=== PATIENT | male | born 1945 | race Caucasian/White ===

== ENCOUNTER 2024-07-10 05:44 | Inpatient (IN) ==
[2024-07-10 06:36] LABS: Basophils # (auto) 0.04 K/uL (0.00-0.20); Basophils % (auto) 0.8 %; Eosinophils # (auto) 0.15 K/uL (0.00-0.50); Eosinophils % (auto) 2.9 %; Hematocrit (blood only) 47.3 % (42.0-52.0); Hemoglobin 16.8 g/dl (14.0-18.0); Immature Granulocytes # (auto) 0.01 K/uL (0.01-0.20); Immature Granulocytes % (auto) 0.2 %; Lymphocytes # (auto) 0.52 K/uL (1.20-3.40); Mean Corpuscular Hemoglobin 30.4 pg (25.0-34.0); Mean Corpuscular Hgb Conc 35.5 g/dL (32.0-36.0); Mean Corpuscular Volume 85.5 fL (80.0-100.0); Mean Platelet Volume 8.5 fL (9.4-12.4); Monocytes # (auto) 0.45 K/uL (0.11-0.59); Monocytes % (auto) 8.6 %; Neutrophils # (auto) 4.05 K/uL (1.40-6.50); Neutrophils % (auto) 77.5 %; Platelet Count 196 K/uL (130-400); RDW Coefficient of Variation 12.8 % (11.5-14.5); RDW Standard Deviation 39.3 fL (36.4-46.3); Red Blood Count 5.53 M/uL (4.70-6.10); White Blood Count 5.22 K/ul (4.8-10.8)
--- NOTE | 2024-07-10 07:08 | Emergency Department Note ---
History of Present Illness General Chief Complaint: Chest Pain Stated Complaint: CHEST PAIN Time Seen by Provider: 07/10/24 06:34 History of Present Illness Provider Complaint: chest pain Time: 02:00 Duration: intermittent Onset: during rest Pain Location: left chest Pain Radiation: LUE Severity: mild Current Pain Intensity: 0 Quality: + aching and + dull Relieved By: + nothing Exacerbated By: + nothing Context: no recent illness, no recent surgery, no recent immobilization, no recent travel, no trauma/injury or no new medications Associated symptoms: no nausea, no vomiting, no dyspnea, no syncope, no palpitations, no fever, no cough or no leg swelling Home Medications Medication Instructions Recorded Confirmed Type albuterol sulfate 90 mcg/actuation 2 puff inhalation QID PRN 10/15/22 07/10/24 History aerosol inhaler Shortness Of Breath fluticasone propionate 50 2 spray intranasal QAM 10/15/22 07/10/24 History mcg/actuation nasal spray,suspension lorazepam 1 mg tablet 1 mg PO BID 10/15/22 07/10/24 History mirtazapine 15 mg tablet 30 mg PO HS 10/15/22 07/10/24 History dicyclomine 10 mg capsule 10 mg PO TID PRN abdominal pain 06/30/24 07/10/24 Rx #20 caps famotidine 20 mg tablet 20 mg PO DAILY 06/30/24 07/10/24 History metoclopramide HCl 5 mg tablet 5 mg PO Q8H PRN nausea and 06/30/24 07/10/24 Rx vomiting #14 tabs azelastine 137 mcg (0.1 %) nasal 1 spray intranasal DAILY 07/09/24 07/10/24 History spray buspirone 5 mg tablet 5 mg PO BID 07/09/24 07/10/24 History prochlorperazine maleate 5 mg 5 mg PO DIRECTED PRN n/v 07/09/24 07/10/24 History tablet sennosides 8.6 mg tablet (senna) 8.6 mg PO DAILY 07/09/24 07/10/24 History tamsulosin 0.4 mg capsule 0.4 mg PO DAILY 07/09/24 07/10/24 History Allergies Allergy/AdvReac Type Severity Reaction Status Date / Time bee venom protein (honey bee) Allergy Severe SWELLING Verified 06/30/24 18:19 Penicillins Allergy Intermediate RASH Verified 06/30/24 18:19 hydromorphone AdvReac Mild VOMITING Verified 06/30/24 18:19 Past Med/Surg History Problem List (Updated 07/10/24 @ 09:26 by Lorenzo Juárez MD) Chest pain (Acute) Acute hyponatremia (Acute) Dry mouth (Acute) Nausea (Acute) Abdominal pain (Acute) Encounter for pre-operative examination Medical History Esophageal cancer S/P radiation therapy Acute hyponatremia Diverticulitis Lung nodules monitoring-once every 6 months-1 year Chronic obstructive pulmonary disease inh prn History of COVID-19 10/2020, test in [place], not hosp; fatigue, body aches>resolved in 1 week Anxiety Surgical History History of right cataract surgery Hx laparoscopic cholecystectomy Hx of colonoscopy Hx of sinus surgery Hx of tonsillectomy Social History Smoking Status: Former smoker Second Hand Exposure: No; Do You Dip or Chew Tobacco: No; Hx Alcohol Use: Yes Hx Substance Use: No Preferred Language: Uzbek Communication Ability: Effective Correctional Casework Specialist Required: No Beliefs That Will Affect Care: None Current Living Situation: Spouse and Family Feels Safe at Home: Yes Assistive Devices: Denture - Upper and Glasses Physical Exam Vital Signs Vital Signs - 24 hr 07/10/24 05:45 07/10/24 05:53 07/10/24 05:55 Temperature 36.4 C L Temperature Source Temporal Artery Scan Pulse Rate 85 78 Pulse Rate [Apical] Pulse Rhythm [Apical] Pulse Strength [Apical] Respiratory Rate 18 Respiratory Effort / Characteristics Respiratory Depth Respiratory Pattern Blood Pressure [Right Arm] Blood Pressure Mean [Right Arm] Blood Pressure Position Sitting Blood Pressure Position [Right Arm] Pulse Oximetry 94 97 Oxygen Delivery Method Room Air Room Air Sepsis Recent Fever Within 48 Hours No Sepsis New/Unexplained Change in Mental Status No Sepsis Action Taken by Nursing No Action Required 07/10/24 05:55 07/10/24 05:55 07/10/24 07:34 Temperature Temperature Source Pulse Rate Pulse Rate [Apical] 74 61 Pulse Rhythm [Apical] Regular Pulse Strength [Apical] Normal Respiratory Rate 18 20 Respiratory Effort / Characteristics Non-Labored Spontaneous Non-Labored Spontaneous Respiratory Depth Normal Normal Respiratory Pattern Regular Regular Blood Pressure [Right Arm] 163/97 H 126/92 Blood Pressure Mean [Right Arm] 119 103 Blood Pressure Position Blood Pressure Position [Right Arm] Sitting Pulse Oximetry 97 97 98 Oxygen Delivery Method Room Air Room Air Room Air Sepsis Recent Fever Within 48 Hours Sepsis New/Unexplained Change in Mental Status Sepsis Action Taken by Nursing Physical Exam GENERAL: oriented to person, place, and time. appears well-developed and well- nourished. HENT: Exam performed. - Head: Normocephalic and atraumatic. EYES: Conjunctivae and EOM are normal. Right eye exhibits no discharge. Left eye exhibits no discharge. No scleral icterus. NECK: Normal range of motion. Neck supple. No JVD present. CV: Normal rate, regular rhythm, normal heart sounds and intact distal pulses. There is no peripheral edema. Palpable radial pulses bue. PULM/CHEST: Effort normal and breath sounds normal. No respiratory distress. No stridor. no wheezes. no rales. ABD: The abdomen is soft. There is no tenderness. NEURO: Motor and sensation grossly intact. SKIN: Skin is warm and dry. He is not diaphoretic. PSYCH: normal mood and affect. Behavior is normal. Judgment and thought content normal. Course Course 0634: The patient was evaluated in room A2. A complete history and physical exam was performed Cardiac monitoring: An order was placed for continuous cardiac monitoring. The monitor shows a rate of 80 with sinus rhythm interpreted by me 0910: Vital signs stable. Labs and imaging within normal limits. Patient will be admitted for his recurrent chest pains. [facility] hospitalist team will be contacted. Administered Medications Discontinued Medications Ioversol (Optiray 320 125ml) 112 ml IV ONCE ONE Stop: 07/10/24 07:36 Last Admin: 07/10/24 07:35 Dose: 112 ml Documented By: JAIDEN Medical Decision Making Laboratory Data Attestation: I reviewed the patient's lab results. 07/10/24 05:50 07/10/24 05:50 Labs: Lab Results 07/10/24 Range/Units 05:50 WBC 5.22 (4.8-10.8) K/ul RBC 5.53 (4.70-6.10) M/uL Hgb 16.8 (14.0-18.0) g/dl Hct 47.3 (42.0-52.0) % MCV 85.5 (80.0-100.0) fL MCH 30.4 (25.0-34.0) pg MCHC 35.5 (32.0-36.0) g/dL RDW Std Deviation 39.3 (36.4-46.3) fL RDW Coeff of Zohra 12.8 (11.5-14.5) % Plt Count 196 (130-400) K/uL MPV 8.5 L (9.4-12.4) fL Immature Gran % (Auto) 0.2 % Neut % (Auto) 77.5 % Lymph % (Auto) 10.0 % [place] % (Auto) 8.6 % Eos % (Auto) 2.9 % Baso % (Auto) 0.8 % Neut # (Auto) 4.05 (1.40-6.50) K/uL Lymph # (Auto) 0.52 L (1.20-3.40) K/uL [place] # (Auto) 0.45 (0.11-0.59) K/uL Eos # (Auto) 0.15 (0.00-0.50) K/uL Baso # (Auto) 0.04 (0.00-0.20) K/uL Immature Gran # (Auto) 0.01 (0.01-0.20) K/uL Sodium 133 L (136-145) mmol/L Potassium 4.1 (3.5-5.1) mmol/L Chloride 96 L (98-107) mmol/L Carbon Dioxide 29 (21-32) mmol/L Anion Gap 8 (3-11) BUN 7 (6-23) mg/dl Creatinine 1.01 (0.6-1.4) mg/dl Est Cr Clr Drug Dosing 56.4 ml/min eGFR 76.12 BUN/Creatinine Ratio 6.9 L (10-20) Glucose 99 (70-99(Fasting)) mg/dl Calcium 10.7 H (8.6-10.3) mg/dl Total Bilirubin 1.0 (0.2-1.0) mg/dl AST 18 (13-39) U/L ALT 19 (7-52) U/L Alkaline Phosphatase 71 (34-104) U/L Troponin I High Sens 5.1 (0-20) pg/ml Total Protein 8.2 D (6.0-8.3) gm/dl Albumin 4.9 (3.4-5.0) gm/dl Globulin 3.3 (2.5-4.0) gm/dl Albumin/Globulin Ratio 1.5 (0.9-2) Lipase 27 (11-82) U/L Imaging Data Chest x-ray: Attestation: I personally reviewed and interpreted this imaging study as follows: My impression: Chest x-ray: No significant change from the chest x-ray yesterday. CT scan - chest: Radiologist's impression: CT ANGIOGRAM OF THE CHEST CLINICAL HISTORY: Atypical/left-sided chest pain. Nausea. COMPARISON STUDY: Chest x-ray dated 07/10/2024. Chest CT dated 01/31/2024. TECHNIQUE: Following the IV administration of 112 cc of Optiray 320, CT angiogram of the chest was performed from the upper abdomen to the thoracic inlet utilizing the pulmonary embolus protocol. Images are reviewed in the axial, sagittal, and coronal planes. 3-D MIPS images are created and assessed. IV contrast was administered without complication. A dose lowering technique was utilized adhering to the principles of ALARA. CT DOSE: 624.79 mGy.cm FINDINGS: Thyroid: Imaged portions of the thyroid gland are normal in size and attenuation. Thoracic aorta: There is atherosclerotic calcification of the thoracic aorta, which is normal in caliber and demonstrates standard 3-vessel arch anatomy. No dissection is seen. Pulmonary vasculature: The pulmonary trunk is normal in caliber. There are no filling defects identified in main, lobar, or segmental pulmonary branches to suggest pulmonary embolus. Heart: The heart is top normal in size and without pericardial effusion. There is coronary artery atherosclerosis. Lungs and pleural spaces: Evaluation of the lung parenchyma is degraded by motion artifact. There is moderate emphysematous change. No airspace consolidation or pleural effusion is identified. The trachea and central airways are clear. There are scattered foci of parenchymal scarring. A 3 mm right upper lobe nodule on image #140 is unchanged, as are 3 mm right middle lobe nodules seen on images #111 and #118. Mediastinum: There is no mediastinal lymphadenopathy. Betsey: Clear. Axillae: There is no axillary lymphadenopathy. Upper abdomen: Cholecystectomy clips are noted. Bilateral upper pole renal cysts are partially visualized and measure up to 6 cm. There is a small hiatal hernia. Skeletal structures: The skeletal structures are osteopenic. Mild degenerative change is noted in the shoulders and spine. No lytic or blastic bony lesions are seen. IMPRESSION: 1. There is no evidence of pulmonary embolus in the main, lobar, or segmental pulmonary arteries. 2. Emphysema. 3. There is no airspace consolidation or pleural effusion. 4. Additional findings as above. ACT 112: Negative or not required by law. Electronically signed by: Luis Christianson M.D. 07/10/2024 8:29 AM Dictated: 07/10/24802 Transcribed: 07/10/24808 ECG Data Attestation: I personally reviewed and interpreted this ECG as follows: Rate (beats per minute): 77 Rhythm: normal sinus Findings: no ST depression, no ST elevation or no prolonged QT MDM Narrative 0634: The patient was evaluated in room A2. A complete history and physical exam was performed Cardiac monitoring: An order was placed for continuous cardiac monitoring. The monitor shows a rate of 80 with sinus rhythm interpreted by me 0910: Vital signs stable. Labs and imaging within normal limits. Patient will be admitted for his recurrent chest pains. [facility] hospitalist team will be contacted. Impression & Plan Chest pain Discharge Plan Visit Data Chief Complaint: Chest Pain Stated Complaint: CHEST PAIN ED Provider: Lorenzo Juárez Discharge Problem: Chest pain Patient Disposition: Being Evaluated by Hospitalist Forms Stand Alone Forms: My [facility] Prescriptions Prescriptions: No Action mirtazapine 15 mg Tablet 30 mg PO HS lorazepam 1 mg Tablet 1 mg PO BID fluticasone propionate 50 mcg/actuation [place],Suspension 2 spray INTRANASAL QAM Rx Instructions: administer into each nostril albuterol sulfate 90 mcg/actuation Hfa Aerosol Inhaler 2 puff INHALATION QID PRN (Reason: Shortness Of Breath) famotidine 20 mg tablet 20 mg PO DAILY dicyclomine 10 mg capsule 10 mg PO TID PRN (Reason: abdominal pain) Qty: 20 0RF metoclopramide HCl 5 mg tablet 5 mg PO Q8H PRN (Reason: nausea and vomiting) Qty: 14 0RF buspirone 5 mg tablet 5 mg PO BID sennosides [senna] 8.6 mg tablet 8.6 mg PO DAILY prochlorperazine maleate 5 mg tablet 5 mg PO DIRECTED PRN (Reason: n/v) tamsulosin 0.4 mg capsule 0.4 mg PO DAILY azelastine 137 mcg (0.1 %) spray,non-aerosol 1 spray INTRANASAL DAILY Referrals Referrals: David Enriquez MD [Primary Care Provider] - Discharge Problem: Chest pain Qualifiers: Chest pain type: unspecified Qualified Code(s): R07.9 - Chest pain, unspecified
[2024-07-10 07:19] LABS: Albumin Globulin Ratio 1.5 (0.9-2); Albumin Level 4.9 gm/dl (3.4-5.0); BUN Creatinine Ratio 6.9 (10-20); Calcium 10.7 mg/dl (8.6-10.3); Creatinine Clr Calc Pharmacy 56.4 ml/min; Globulin 3.3 gm/dl (2.5-4.0); Potassium 4.1 mmol/L (3.5-5.1); Total Protein 8.2 gm/dl (6.0-8.3); Troponin I High Sensitivity 5.1 pg/ml (0-20)
[2024-07-10] MEDS: OPTIRAY 320 125ml IV ONE (07:35)
--- NOTE | 2024-07-10 07:37 | Electrocardiogram Report ---
Test Reason : Blood Pressure : */* mmHG Vent. Rate : 77 BPM Atrial Rate : 77 BPM P-R Int : 160 ms QRS Dur : 90 ms QT Int : 390 ms P-R-T Axes : 82 84 77 degrees QTcB Int : 441 ms Normal sinus rhythm Normal ECG When compared with ECG of 09-Jul-2024 10:36, (unconfirmed) No significant change was found Confirmed by Gautam Liang ([id number]) on 07/10/2024 7:37:12 AM Referred By: Confirmed By: Gautam Liang
--- NOTE | 2024-07-10 08:01 | XRay Report ---
SINGLE VIEW CHEST CLINICAL HISTORY: Atypical/left-sided chest pain. FINDINGS: An AP, portable, upright chest radiograph is compared to study dated 06/06/2011 and correlat ed with chest CT dated 01/31/2024. The examination is degraded by portable technique, apical lordotic positioning, and patient rotation. The cardiomediastinal silhouette is unremarkable noting atheroscle rotic calcification of the thoracic aorta. Emphysema and chronic interstitial thickening is similar t o previous. There is mild chronic elevation of right hemidiaphragm. The lungs and pleural spaces are clear. No pneumothorax is seen. The skeletal structures are osteopenic. The bony thorax is grossly in tact. IMPRESSION: Emphysematous change with no active disease in the chest. ACT 112: Negative or not required by law. Electronically signed by: Luis Christianson M.D. 07/10/2024 8:00 AM
--- NOTE | 2024-07-10 08:31 | CT Scan Report ---
CT ANGIOGRAM OF THE CHEST CLINICAL HISTORY: Atypical/left-sided chest pain. Nausea. COMPARISON STUDY: Chest x-ray dated 07/10/2024. Chest CT dated 01/31/2024. TECHNIQUE: Following the IV administration of 112 cc of Optiray 320, CT angiogram of the chest was pe rformed from the upper abdomen to the thoracic inlet utilizing the pulmonary embolus protocol. Images are reviewed in the axial, sagittal, and coronal planes. 3-D MIPS images are created and assessed. I V contrast was administered without complication. A dose lowering technique was utilized adhering to the principles of ALARA. CT DOSE: 624.79 mGy.cm FINDINGS: Thyroid: Imaged portions of the thyroid gland are normal in size and attenuation. Thoracic aorta: There is atherosclerotic calcification of the thoracic aorta, which is normal in [place] titi and demonstrates standard 3-vessel arch anatomy. No dissection is seen. Pulmonary vasculature: The pulmonary trunk is normal in caliber. There are no filling defects identif ied in main, lobar, or segmental pulmonary branches to suggest pulmonary embolus. Heart: The heart is top normal in size and without pericardial effusion. There is coronary artery ath erosclerosis. Lungs and pleural spaces: Evaluation of the lung parenchyma is degraded by motion artifact. There is moderate emphysematous change. No airspace consolidation or pleural effusion is identified. The trach ea and central airways are clear. There are scattered foci of parenchymal scarring. A 3 mm right uppe r lobe nodule on image #140 is unchanged, as are 3 mm right middle lobe nodules seen on images #111 a nd #118. Mediastinum: There is no mediastinal lymphadenopathy. Betsey: Clear. Axillae: There is no axillary lymphadenopathy. Upper abdomen: Cholecystectomy clips are noted. Bilateral upper pole renal cysts are partially visual ized and measure up to 6 cm. There is a small hiatal hernia. Skeletal structures: The skeletal structures are osteopenic. Mild degenerative change is noted in the shoulders and spine. No lytic or blastic bony lesions are seen. IMPRESSION: 1. There is no evidence of pulmonary embolus in the main, lobar, or segmental pulmonary arteries. 2. Emphysema. 3. There is no airspace consolidation or pleural effusion. 4. Additional findings as above. ACT 112: Negative or not required by law. Electronically signed by: Luis Christianson M.D. 07/10/2024 8:29 AM
--- NOTE | 2024-07-10 10:11 | History & Physical Report ---
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 Finish the course of 35 radiation treatment last week or so He sees oncologist at [place] and saw him about 3 to 4 weeks ago (3) Abdominal bloating: Plan: He has been complaining of abdominal bloating with nausea and vomiting and abdominal pain for a Recently he was seen by his primary care physician and underwent CT of the abdomen pelvis without IV and oral contrast The CT of the abdomen pelvis without IV and oral contrast was negative as of 06/16/2024 He has been on oral famotidine and Protonix and will try Maalox as needed for dyspepsia Plan to get a CT scan of the abdomen pelvis with IV and oral contrast to rule out any possibility of metastatic disease (4) Chronic obstructive pulmonary disease: Plan: History of smoking in the past and takes occasional bronchodilator inhaler for COPD No evidence of exacerbation (5) Anxiety: Plan: History of generalized anxiety disorder and also recurrent major depressive disorder Will continue current medications including lorazepam 1 mg twice daily DVT prophylaxis Lovenox subcu CODE STATUS Full History of Present Illness Chief Complaint: Left-sided chest pain since 2 AM, abdominal discomfort, bloating and nausea with vomiting Primary Care Provider: David Enriquez MD He is a 78-year-old male with significant past medical history of squamous cell carcinoma of glottis/larynx finished radiation treatment last week or so, COPD, recurrent major depressive disorder, JOSE, hyperlipidemia and ongoing dyspepsia apparently woke up at 2 AM with left-sided chest pain with radiation to the left upper extremity. The pain lasted for a while but did not have any other associated symptoms of dizziness, sweating, shortness of breath, palpitation but he did have abdominal bloating with nausea and vomiting. He did not have this kind of pain in the chest before. When asking questions he mentioned to have more problem with abdominal bloating which has been ongoing associated with nausea and occasional vomiting. His initial EKG and troponins were unremarkable. He was admitted to medical telemetry unit for continuation of care. Allergies Allergy/AdvReac Type Severity Reaction Status Date / Time bee venom protein (honey bee) Allergy Severe SWELLING Verified 06/30/24 18:19 Penicillins Allergy Intermediate RASH Verified 06/30/24 18:19 hydromorphone AdvReac Mild VOMITING Verified 06/30/24 18:19 Home Medications Medication Instructions Recorded Confirmed Type albuterol sulfate 90 mcg/actuation 2 puff inhalation QID PRN 10/15/22 07/10/24 History aerosol inhaler Shortness Of Breath fluticasone propionate 50 2 spray intranasal QAM 10/15/22 07/10/24 History mcg/actuation nasal spray,suspension lorazepam 1 mg tablet 1 mg PO BID 10/15/22 07/10/24 History mirtazapine 15 mg tablet 30 mg PO HS 10/15/22 07/10/24 History dicyclomine 10 mg capsule 10 mg PO TID PRN abdominal pain 06/30/24 07/10/24 Rx #20 caps famotidine 20 mg tablet 20 mg PO DAILY 06/30/24 07/10/24 History metoclopramide HCl 5 mg tablet 5 mg PO Q8H PRN nausea and 06/30/24 07/10/24 Rx vomiting #14 tabs azelastine 137 mcg (0.1 %) nasal 1 spray intranasal DAILY 07/09/24 07/10/24 History spray buspirone 5 mg tablet 5 mg PO BID 07/09/24 07/10/24 History prochlorperazine maleate 5 mg 5 mg PO DIRECTED PRN n/v 07/09/24 07/10/24 History tablet sennosides 8.6 mg tablet (senna) 8.6 mg PO DAILY 07/09/24 07/10/24 History tamsulosin 0.4 mg capsule 0.4 mg PO DAILY 07/09/24 07/10/24 History Past Med/Surg History Problem List (Updated 07/10/24 @ 10:22 by Karolina Olmos MD) Abdominal bloating Squamous cell carcinoma of glottis Chest pain (Acute) Acute hyponatremia (Acute) Dry mouth (Acute) Nausea (Acute) Abdominal pain (Acute) Encounter for pre-operative examination Medical History Esophageal cancer S/P radiation therapy Acute hyponatremia Diverticulitis Lung nodules monitoring-once every 6 months-1 year Chronic obstructive pulmonary disease inh prn History of COVID-19 10/2020, test in [place], not hosp; fatigue, body aches>resolved in 1 week Anxiety Surgical History History of right cataract surgery Hx laparoscopic cholecystectomy Hx of colonoscopy Hx of sinus surgery Hx of tonsillectomy Social History Smoking Status: Former smoker Second Hand Exposure: No; Do You Dip or Chew Tobacco: No; Hx Alcohol Use: Yes Hx Substance Use: No Preferred Language: Surinamese Communication Ability: Effective Plastic Surgery Assistant Required: No Beliefs That Will Affect Care: None Current Living Situation: Spouse and Family Feels Safe at Home: Yes Assistive Devices: Denture - Upper and Glasses Review of Systems Review of Systems: All systems reviewed and are unremarkable except as noted below Physical Exam Physical Exam: Sitting at the edge of the bed with some discomfort due to abdominal bloating mainly no more chest pain Constitutional: + ill appearing and average body habitus Eyes: PERRL, conjunctivae normal, anicteric sclerae ENMT: external ear and nose normal, oropharynx normal Neck: trachea midline, no thyromegaly Respiratory: no respiratory distress Auscultation: lungs clear to auscultation bilaterally Cardiovascular: Rate/Rhythm: regular rate and regular rhythm; not tachycardic Heart Sounds: normal S1 and normal S2; no murmur Extremities: no edema Gastrointestinal (Abdomen): Inspection/Auscultation: + abdomen distended and normal bowel sounds Percussion/Palpation: abdomen soft; abdomen nontender Musculoskeletal: No acute arthritis involving any of the joints Neurologic: normal touch/pain/proprioception and moves all extremities; no focal motor deficits Psychiatric: A+Ox3, euthymic affect Lymphatic: no cervical or axillary lymphadenopathy Results & Data Results & Data Vital Signs (Past 12 Hours) Vital Signs Temp Pulse Pulse Resp BP BP Pulse Ox 07/10/24 09:06 70 19 159/85 H 96 07/10/24 07:34 61 20 126/92 98 07/10/24 05:55 97 07/10/24 05:55 74 18 163/97 H 97 10/27/24 05:55 97 07/10/24 05:53 78 07/10/24 05:45 36.4 C L 85 18 94 O2 Del Method 07/10/24 09:06 07/10/24 07:34 Room Air 07/10/24 05:55 Room Air 07/10/24 05:55 Room Air 07/10/24 05:55 Room Air 07/10/24 05:53 07/10/24 05:45 Room Air Laboratory Results Short CBC 07/10/24 Range/Units 05:50 WBC 5.22 (4.8-10.8) K/ul Hgb 16.8 (14.0-18.0) g/dl Hct 47.3 (42.0-52.0) % Plt Count 196 (130-400) K/uL BMP 07/10/24 05:50 Sodium 133 L Potassium 4.1 Chloride 96 L Carbon Dioxide 29 BUN 7 Creatinine 1.01 Glucose 99 Calcium 10.7 H Liver Function 07/10/24 Range/Units 05:50 Total Bilirubin 1.0 (0.2-1.0) mg/dl AST 18 (13-39) U/L ALT 19 (7-52) U/L Alkaline Phosphatase 71 (34-104) U/L Albumin 4.9 (3.4-5.0) gm/dl Medications Administered Current Inpatient Medications Al Hydrox/Mg Hydrox/Simethicone (Aluminum/Magnesium Susp 30 Ml Udc) 30 ml PO Q6H PRN PRN Reason: Dyspepsia Stop: 08/09/24 10:01 Enoxaparin Sodium (Enoxaparin Inj 40 Mg/0.4 Ml Syr) 40 mg SQ QAM [facility] Stop: 08/09/24 10:14 Code Status & VTE Plan VTE Prophylaxis Plan VTE Prophylaxis will be ordered: Yes (1) Chest pain Chest pain type: unspecified Qualified Code(s): R07.9 - Chest pain, unspecified
[2024-07-10] MEDS: ALUMINUM/MAGNESIUM SUSP 30 ML UDC PO PRN (10:21)
[2024-07-10] MEDS: ENOXAPARIN INJ 40 MG/0.4 ML SYR SQ SCH (11:20)
[2024-07-10] MEDS ORDERED: ALBUTEROL HFA 8 GM INHALER INH PRN (12:52)
[2024-07-10] MEDS ORDERED: HYDROmorphone INJ 0.5 MG/0.5 ML SYR IV PRN (14:35)
[2024-07-10] MEDS: LACTATED RINGER'S 1,000 ML IV SCH (14:55)
[2024-07-10] MEDS: DICYCLOMINE HCL 10 MG CAP PO PRN (15:00)
[2024-07-10] MEDS ORDERED: KETOROLAC TROMETHAMINE 15 MG/ML VIAL IV PRN (15:06)
[2024-07-10] MEDS: LORazepam 1 MG TAB PO STA (16:09)
[2024-07-10] MEDS: MIRTAZAPINE TAB 15 MG TAB PO SCH (21:26)
[2024-07-10] MEDS: busPIRone 5 MG TAB PO SCH (21:26)
[2024-07-10] MEDS: LORazepam 1 MG TAB PO SCH (21:32)
[2024-07-10] MEDS: HYDROCODONE/ACETAMOPHEN 5/325MG TAB PO PRN (21:32)
[2024-07-10] MEDS: ACETAMINOPHEN 325 MG TAB PO PRN (22:53)
[2024-07-11] MEDS: ONDANSETRON INJ 2 MG/ML 2 ML VIAL IV PRN (06:05)
[2024-07-11 06:08] LABS: BUN Creatinine Ratio 6.5 (10-20); Calcium 9.7 mg/dl (8.6-10.3); Creatinine Clr Calc Pharmacy 61.2 ml/min; Magnesium 1.7 mg/dl (1.7-2.4); Potassium 3.8 mmol/L (3.5-5.1)
[2024-07-11 06:42] LABS: Basophils # (auto) 0.05 K/uL (0.00-0.20); Eosinophils # (auto) 0.17 K/uL (0.00-0.50); Eosinophils % (auto) 3.5 %; Hematocrit (blood only) 36.5 % (42.0-52.0); Hemoglobin 13.1 g/dl (14.0-18.0); Immature Granulocytes # (auto) 0.01 K/uL (0.01-0.20); Immature Granulocytes % (auto) 0.2 %; Lymphocytes # (auto) 0.53 K/uL (1.20-3.40); Lymphocytes % (auto) 11.1 %; Mean Corpuscular Hemoglobin 30.5 pg (25.0-34.0); Mean Corpuscular Hgb Conc 35.9 g/dL (32.0-36.0); Mean Corpuscular Volume 84.9 fL (80.0-100.0); Monocytes # (auto) 0.55 K/uL (0.11-0.59); Monocytes % (auto) 11.5 %; Neutrophils # (auto) 3.48 K/uL (1.40-6.50); Neutrophils % (auto) 72.7 %; Platelet Count 172 K/uL (130-400); RDW Standard Deviation 39.6 fL (36.4-46.3); White Blood Count 4.79 K/ul (4.8-10.8)
[2024-07-11 08:11] VITALS: TEMP 97.3
[2024-07-11] MEDS: FAMOTIDINE 20 MG TAB PO SCH (08:59)
[2024-07-11] MEDS: TAMSULOSIN HCL 0.4 MG CAP PO SCH (08:59)
[2024-07-11] MEDS: AZELASTINE HCL 0.1% NASAL 200 SPRAYS/27,400 MCG BTL SCH (08:59)
[2024-07-11] MEDS: FLUTICASONE PROPIONATE NA SPR 16 GM BTL SCH (09:00)
[2024-07-11] MEDS: SENNA 8.6 MG TAB PO SCH (09:02)
[2024-07-11 11:50] VITALS: BP 131/68; PULSE 67; RESP 18; O2SAT 93
--- NOTE | 2024-07-11 12:00 | Discharge Summary ---
Date of Service July 11, 2024 Admission HPI Per Admitting Provider He is a 78-year-old male with significant past medical history of squamous cell carcinoma of glottis/larynx finished radiation treatment last week or so, COPD, recurrent major depressive disorder, JOSE, hyperlipidemia and ongoing dyspepsia apparently woke up at 2 AM with left-sided chest pain with radiation to the left upper extremity. The pain lasted for a while but did not have any other associated symptoms of dizziness, sweating, shortness of breath, palpitation but he did have abdominal bloating with nausea and vomiting. He did not have this kind of pain in the chest before. When asking questions he mentioned to have more problem with abdominal bloating which has been ongoing associated with nausea and occasional vomiting. His initial EKG and troponins were unremarkable. He was admitted to medical telemetry unit for continuation of care. Admission Exam Per Admitting Provider Physical Exam: Sitting at the edge of the bed with some discomfort due to abdominal bloating mainly no more chest pain Constitutional: + ill appearing and average body habitus Eyes: PERRL, conjunctivae normal, anicteric sclerae ENMT: external ear and nose normal, oropharynx normal Neck: trachea midline, no thyromegaly Respiratory: no respiratory distress Auscultation: lungs clear to auscultation bilaterally Cardiovascular: Rate/Rhythm: regular rate and regular rhythm; not tachycardic Heart Sounds: normal S1 and normal S2; no murmur Extremities: no edema Gastrointestinal (Abdomen): Inspection/Auscultation: + abdomen distended and normal bowel sounds Percussion/Palpation: abdomen soft; abdomen nontender Musculoskeletal: No acute arthritis involving any of the joints Neurologic: normal touch/pain/proprioception and moves all extremities; no focal motor deficits Psychiatric: A+Ox3, euthymic affect Lymphatic: no cervical or axillary lymphadenopathy Principal Diagnosis Atypical chest pain Discharge Exam Constitutional + well hydrated; no acute distress Eyes PERRL, conjunctivae normal, anicteric sclerae ENMT external ear and nose normal, oropharynx normal Respiratory normal respiratory effort, lungs clear to auscultation Cardiovascular Rate/Rhythm: regular rate and regular rhythm Gastrointestinal (Abdomen) normal bowel sounds, soft, nontender, no hepatosplenomegaly Musculoskeletal No pedal edema Neurologic PERRL, EOMI, accommodation nl, no face palsy, no dysarthria Psychiatric A+Ox3, euthymic affect Discharge Data Allergies Allergy/AdvReac Type Severity Reaction Status Date / Time bee venom protein (honey bee) Allergy Severe SWELLING Verified 06/30/24 18:19 Penicillins Allergy Intermediate RASH Verified 06/30/24 18:19 hydromorphone AdvReac Mild VOMITING Verified 06/30/24 18:19 Consultations 07/10/24 08:46 ED Decision to Admit Stat 07/11/24 08:20 Consult Behavioral Health Liaison Routine Ordered Studies 07/10/24 06:53 CT angio chest PE protocol Stat Hospital Course (1) Chest pain: Patient woke up with chest pain with radiation to left upper extremity at 2 AM and the pain lasted for more than half an hour without any other associated symptoms EKG did not show ST changes Troponin trend was normal TTE noted normal LV size, mild conc LVH, EF 65-70%, Grade I DD, borderline RV enlargement, RVSF is normal Patient seen and examined today Reports chest pain and abd pain are resolved Stated that he feels it was 'gas pains' ACS ruled out (2) Squamous cell carcinoma of glottis: History of squamous cell carcinoma of glottis/larynx Continue radiation therapy Continue to follow up with his ENT and RadOnc (3) Abdominal bloating: He has been complaining of abdominal bloating with nausea and vomiting and abdominal pain for a Recently he was seen by his primary care physician and underwent CT of the abdomen pelvis without IV and oral contrast The CT of the abdomen pelvis without IV and oral contrast was negative as of 06/16/2024 CT abd/P from 06/30/24 noted fluid in colon suggestive of diarrheal state, possible enteritis, prostatomegaly (4) Chronic obstructive pulmonary disease: History of smoking in the past and takes occasional bronchodilator inhaler for COPD No evidence of exacerbation (5) Anxiety: History of generalized anxiety disorder and also recurrent major depressive disorder Continue home meds I called and updated her Total Time Total Time Spent Total Time Spent (In Minutes): 35 Total Time Includes: Examination of the Patient, Discharge Planning and Medication Reconciliation Discharge Plan Discharge Items Patient Disposition: Home - Self-Care Reason For Visit: CHEST PAIN, ABD BLOATING, CA ESOPHAGUS Discharge Diagnosis: Atypical chest pain Activity: Resume your previous activity Non-emergency contact: Primary Care Provider Call non-emergency contact if: you have any medication questions Follow-up/Referrals: David Enriquez MD [Primary Care Provider] - (Date & Time 07/14/2024 4:30 PM Provider David España MD Department Family [facility] ) Diet: Regular Addtl Attending Provider Instructions: Mr Mine Tinajero were brought to the hospital for chest pain and was extensively evaluated. Your chest pain has resolved and you are being discharged home. Please ensure follow up with your Primary Doctor. It was a pleasure taking care of you Pending Studies at Discharge: No Stand-Alone Forms: My [facility] Jini, Smoking Cessation Medications and DC Order Prescriptions: Continued mirtazapine 15 mg Tablet 30 mg PO HS lorazepam 1 mg Tablet 1 mg PO BID fluticasone propionate 50 mcg/actuation [place],Suspension 2 spray INTRANASAL QAM Rx Instructions: administer into each nostril albuterol sulfate 90 mcg/actuation Hfa Aerosol Inhaler 2 puff INHALATION QID PRN (Reason: Shortness Of Breath) famotidine 20 mg tablet 20 mg PO DAILY dicyclomine 10 mg capsule 10 mg PO TID PRN (Reason: abdominal pain) Qty: 20 0RF metoclopramide HCl 5 mg tablet 5 mg PO Q8H PRN (Reason: nausea and vomiting) Qty: 14 0RF buspirone 5 mg tablet 5 mg PO BID sennosides [senna] 8.6 mg tablet 8.6 mg PO DAILY prochlorperazine maleate 5 mg tablet 5 mg PO DIRECTED PRN (Reason: n/v) tamsulosin 0.4 mg capsule 0.4 mg PO DAILY azelastine 137 mcg (0.1 %) spray,non-aerosol 1 spray INTRANASAL DAILY Discharge Orders: Discharge Order (Routine); Ordered 07/11/24 Ordered By: Sherlyn Neil Admission Data Admit Date/Time: 07/10/24 10:05 Attending Provider: Sherlyn Neil I. Admit Provider: Karolina Olmos Primary Care Provider: David Enriquez Other Providers: Karolina Olmos Other Interventions: Discharge Summary Assessment (RN) Last Done: 07/11/24 12:47
--- NOTE | 2024-07-11 12:43 | Electrocardiogram Report ---
Test Reason : Blood Pressure : */* mmHG Vent. Rate : 72 BPM Atrial Rate : 72 BPM P-R Int : 172 ms QRS Dur : 88 ms QT Int : 406 ms P-R-T Axes : 85 88 68 degrees QTcB Int : 444 ms Normal sinus rhythm Normal ECG When compared with ECG of 10-Jul-2024 05:51, No significant change was found Confirmed by Gautam Liang ([id number]) on 07/11/2024 12:43:11 PM Referred By: REFERRED SELF Confirmed By: Gautam Liang
--- NOTE | 2024-07-11 12:49 | Electrocardiogram Report ---
Test Reason : Blood Pressure : */* mmHG Vent. Rate : 62 BPM Atrial Rate : 62 BPM P-R Int : 134 ms QRS Dur : 88 ms QT Int : 436 ms P-R-T Axes : 58 80 74 degrees QTcB Int : 442 ms Normal sinus rhythm Normal ECG When compared with ECG of 10-Jul-2024 11:44, (unconfirmed) No significant change was found Confirmed by Gautam Liang ([id number]) on 07/11/2024 12:49:19 PM Referred By: REFERRED SELF Confirmed By: Gautam Liang
== END 2024-07-11 14:09 | disposition home or self-care (01) | DRG 313 ==
LOC: ED 05:44 → SUATTDRO 10:05 → 2N 10:05

== ENCOUNTER 2024-07-16 15:55 | Observation (INO) ==
--- OUTSIDE RECORDS SUMMARY | 2024-07-16 16:02 | External Medical Summary | Summary of Care ---
Author Name Unknown Organization [facility] Address [address] [place] [address] Phone [phone] Care Team Providers Care International Project Engineer Name Role Phone David España MD Primary Care P rovider Reason for Visit * Reason Onset Date Comments Medication Question 07/14/2024 Encounter Details Date Type Department Care Team ([facility] Contact Info) Description 07/14/2024 Telephone Family Practice [address] [phone] David España MD [address] [place] [phone] Medication Question Allergies Active Allergy Reactions Criticality Noted Date Comments Bee Venom Edema Other 08/01/2003 Local large swelling; no anaphylaxis history Hydromorphone Hcl Other (Please comment) 2011 Hyperactive Oxycodone Psych complications 06/02/2024 Delusions/hallucinati ons Penicillins Hives,Itching 06/08/2001 documented as of this encounter (statuses as of 07/15/2024) Medications Medication Sig Dispensed Refills Start Date End Date Status Acetaminophen 500 MG Oral Tablet (TYLENOL) Take 1 Tablet by mouth every 6 hours as needed. Active Hydrocortisone (Perianal) 2.5 % External CreamIndications:Hem orrhoids, external without complications Administer into the rectum 2 times a day. 30 g 1 05/06/2023 Active Saline Nasal [place] 0.65 % Nasal Solution ([place]) Administer 1 [place] into nostril as needed for Congestion. Active Azelastine HCl 0.1 % Nasal Solution (Astelin)Indications :Seasonal allergic rhinitis, unspecified trigger Administer 1 [place] into nostril in the morning and 1 [place] before bedtime. 90 mL 3 03/09/2024 Active Ventolin HFA 108 (90 Base) MCG/ACT Inhalation Aerosol SolutionIndications: COPD, group A, by GOLD 2017 classification ([facility]) Inhale 2 Puffs by mouth every 4 hours as needed for Shortness of Breath, Wheezing or Cough. 18 g 5 03/25/2024 Active Additional Information Patient not taking.Reported on 06/28/2024 HYDROcodone-Acetamin ophen 7.5-325 MG/15ML Oral Solution (Hycet)Indications:S quamous cell carcinoma of glottis ([facility]),Cancer related pain Take 15 mL by mouth every 4 hours as needed for Pain, Moderate. Continued script. 900 mL 06/02/2024 Active LORazepam 1 MG Oral Tablet (Ativan)Indications: Generalized anxiety disorder Take 1 Tablet by mouth every 8 hours as needed for Anxiety. 90 Tablet 06/17/2024 Active Senna 8.6 MG Oral TabletIndications:Co nstipation, unspecified constipation type Take 2 Tablets by mouth in the morning. 60 Tablet 3 06/28/2024 Active Pantoprazole Sodium 40 MG Oral Tablet Delayed Release (Protonix)Indication s:Hoarseness TAKE 1 TABLET BY MOUTH EVERY DAY IN THE MORNING 90 Tablet 1 07/06/2024 Active Prochlorperazine Maleate 5 MG Oral Tablet (Compazine)Indicatio ns:Nausea Take 1 Tablet by mouth every 6 hours as needed for Nausea. 30 Tablet 2 07/07/2024 Active Mirtazapine 30 MG Oral Tablet (Remeron)Indications :Situational anxiety,Recurrent major depressive disorder, in full remission ([facility]) Take 1 Tablet by mouth at bedtime. 30 Tablet 5 07/07/2024 Active Famotidine 20 MG Oral Tablet (Pepcid)Indications: Abdominal bloating Take 1 Tablet by mouth at bedtime as needed for Heartburn. 30 Tablet 5 07/07/2024 Active lamoTRIgine 25 MG Oral Tablet (LaMICtal)Indication s:Adjustment disorder with mixed anxiety and depressed mood Take 1 Tablet by mouth at bedtime for 7 days, THEN 2 Tablets at bedtime for 7 days, THEN 4 Tablets at bedtime for 16 days. 85 Tablet 07/14/2024 08/13/2024 Active documented as of this encounter (statuses as of 07/15/2024) Active Problems Problem Noted Date Diagnosed Date Squamous cell carcinoma of glottis 04/23/2024 Hx laparoscopic cholecystectomy 04/23/2024 Hx of tonsillectomy 04/23/2024 Lung nodules 04/23/2024 Diverticulitis 08/13/2023 Elevated prostate specific antigen (PSA) 023 Other hyperlipidemia 09/25/2022 Chronic kidney disease, stage 3a 10/28/2021 Overview: Per CKD protocol Family history of malignant neoplasm of prostate 10/24/2021 COPD, group A, by GOLD 2017 classification 04/23 Overview: Per COPD GOLD Classification History of tobacco use 09/17/2018 Recurrent major depressive disorder, in full rem ission 06/30/2017 Generalized anxiety disorder 06/02/2012 H/O adenomatous polyp of colon 04/02/2011 ADVANCE DIRECTIVE INFORMATION 06/09/2005 Overview: No, Advance Directive brochure given to patient. documented as of this encounter (statuses as of 07/15/2024) Resolved Problems Problem Noted Date Diagnosed Date Resolved Date Aspirin contraindicated 04/26/201307/16 Depression with anxiety 03/19/201206/14 Loss of weight 08/15/2011 05/03/2013 Irritable bowel syndrome 03/12/2011 ABNORMAL LUNG SCAN 11/01/2010 3 Tobacco use disorder 04/03/2008 013 documented as of this encounter (statuses as of 07/15/2024) Immunizations Name Administration Dates Next Due COVID-19 mRNA, LNP-s, No Pre serve, 2-Dose Series (Relay Network) 01/28/2021,01/07/2021,12/13/2020 Pneumococcal Conjugate Vacc, 13 Valent (Prevnar) 02/24/2017 Pneumococcal Polysaccharide PPV23 (Pneumovax) 05/21/2018,08/15/2010,03/07/2009(Defer red: Patient Refused) Seasonal Influenza Vac., MDV , IM, 0.5 mL (Fluzone) 08/22/2014,06/30/2013,06/02/2012,06/12,08/15/2010,05/30/2009,08/09/2008 (Deferred: Patient Refused) Seasonal Influenza, High Dos e, Trivalent, PF, IM (Fluzone HD) 06/20/2024 Seasonal Influenza, PF, 6 M & above, IM , (FluLaval or Fluzone) 06/12/2020,05/21/2018,06/30/2017 Seasonal Influenza, Quadriva lent Hd (Fluzone Hd) 06/12/2023,07/08/2022,08/13/2021 Seasonal Influenza, Quadriva lent, No Preserve, IM 09/19/2015 Seasonal Influenza, Trivalen t, Adjuvanted, 65+ YRS, PF, (Fluad) 07/05/2019 TD - Tetanus/Diptheria (ADULT) 11/03/2013(Deferr ed: Patient Refused) TDAP (age 10 and older)(Boostrix) 02/27/2023 TDAP, Age 7 and older, IM (Adacel) 05/30/2009 documented as of this encounter Social History Tobacco Use Types Packs/Day Years Used Date Smoking Tobacco: Former Cigarettes 2 30 0 11/26/1981 - 11/27/2011 Smokeless Tobacco: Never Alcohol Use Standard Drinks/Week Comments Not Currently 0 (1 standard drink = 0.6 oz pur e alcohol) PHQ-2 Answer Date Recorded PHQ Adult Total Score 23 07/14/2024 Hunger Vital Sign Answer Date Recorded Within the past 12 months, y ou worried that your food would run out before you got the money to buy more. Never true 07/31/20 23 Within the past 12 months, t he food you bought just didn't last and you didn't have money to get more. Never true 07/31/2023 Childcare Answer Date Recorded Do you feel overwhelmed with taking care of a child, family member or friend? No 07/31/2023 Does your family need help f inding childcare? (Household - for ages 0-17 years) Not on file 07/31/2023 Clothing Answer Date Recorded Have you been unable to get clothing when it was really needed? Yes 07/31/2023 Is your family able to get c lothes or diapers when needed? (Household - for ages 0-17 years) Not on file 07/31/2023 Personal Safety Answer Date Recorded Do you feel unsafe or have concerns for your saf ety? Yes 07/31/2023 Do you have concerns for you r family's safety? (Household - for ages 0-17 years) Not on file 07/31/2023 Utilities Answer Date Recorded Do you have trouble paying y our heating, water, or electric bill? No 07/31/2023 Is your family able to pay t he heat, water, or electric bill? (Household - for ages 0-17 years) Not on file 07/31/2023 Does your family have access to good internet? (Household - for ages 0-17 years) Not on file 07/31/2023 Employment Status Answer Date Recorded Are you unemployed or without regular income? No 07/31/2023 Does the household have a re lar source of income? (Household - for ages 0-17 years) Not on file 07/31/2023 Social Connections Answer Date Recorded How often do you feel lonely or isolated from th ose around you? Never 07/31/2023 Financial Resource Strain Answer Date R ecorded Do you have any trouble payi ng for your medications, or do you think you might in the future? Yes 07/31/2023 Does your family have troubl e paying for medicine? (Household - for ages 0-17 years) Not on file 07/31/2023 Transportation Needs Answer Date Record ed READ ONLY Do you have troubl e getting a ride to medical visits or work? Never True 07/31/2023 Does your family have a hard time getting a ride to doctors visits? (Household - for ages 0-17 years) Not on file 07/31/2023 Has lack of transportation k ept you from medical appointments, meetings, work, or from getting things needed for daily living? Check all that apply. (Adult - for ages 18 years and over) Not on file 07/31/2023 Do you (or your family) have trouble finding or paying for a ride (transportation)? (Household - for ages 0-17 years) Not on file 07/31/2023 Housing Stability Answer Date Recorded Do you currently live in a s helter or have no steady place to sleep at night? No 07/31/2023 READ ONLY Do you think you a re at risk of becoming homeless? No 07/31/2023 Does your family worry about paying for your home or becoming homeless? (Household - for ages 0-17 years) Not on file 1 09/30/2022 Are you homeless or worried that you might be in the future? (Adult - for ages 18 years and over) Not on file Are you (or your family) alva eless or worried that you might be in the future? (Household - for ages 0-17 years) Not on file Food Insecurity Answer Date Recorded Do you need food for this week? No 07/31/2023 Are you able to get enough f ood for your family? (Household - for ages 0-17 years) Not on file 07/31/2023 Does your family need food t his week? (Household - for ages 0-17 years) Not on file 07/31/2023 Do you always have enough fo od for your family? (Household - for ages 0-17 years) Not on file 07/31/2023 Sex and Gender Information Value Date Recorded Sex Assigned at Not on file Gender Identity Not on file Sexual Orientation Not on file Job Start Date Occupation Industry Not on file Not on file Not on file documented as of this encounter Functional Status Functional Status Response Date of Assess ment Are you deaf or do you have serious difficulty h earing? No 03/11/2024 Are you blind or do you have serious difficulty seeing, even when wearing glasses? No 03/11/2024 Do you have serious difficul ty walking or climbing stairs? (5 years old or older) No 03/11/2024 Do you have difficulty dress ing or bathing? (5 years old or older) No 03/11/2024 Because of a physical, menta l, or emotional condition, do you have difficulty doing errands alone such as visiting a doctor s office or shopping? (15 years old or older) No 03/11/20 Cognitive Status Response Date of Assessm ent Because of a physical, menta l, or emotional condition, do you have serious difficulty concentrating, remembering, or making decisions? (5 years old or older) No 03/11/2024 documented as of this encounter Miscellaneous Notes * Telephone Encounter - David España MD - 07/15/2024 1:57 PM EDT Noted. I did request a fast titration up. Patient is aware of potential side effects. His is also monitoring him. Thank you * Telephone Encounter - Beverly Cedeno PHARM Tech - 07/14/2024 5:40 PM EDT E [id number] [address] [facility] calling regarding sig for lamoTRIgine 25 MG Oral Tablet (LaMICtal), system is flagging rx stating sig titrates up med fast, wants to make sure provider is aware, please advise. Thank you, Beverly Cedeno [facility] Technical Project Lead II [facility] 07/14/2024,5:41 PM documented in this encounter Plan of Treatment Upcoming Encounters Date Type Department Care Team (Latest Contact Info) Description 07/20/2024 2:00 PM EST Office Visit Radiation Oncology, [facility] [address] [place] [address] Ron Evangelista MD [address] [place] [phone] 08/10/2024 11:50 AM EST Office Visit [facility] [address] [place] [phone] David España MD [address] [place] [address] 08/15/2024 8:30 AM EST Hospital Encounter [facility] [address] [place] [phone] Danette Clifton DO [address] [place] [id number] 08/15/2024 8:30 AM EST - 08/15/2024 9:00 AM EST Surgery [facility]O [facility], Endoscopy Room [facility] [address] [place] [phone] Danette Clifton, DO [address] [place] [id number] COLONOSCOPY FLEXIBLE PROXIMAL DIAGNOSTIC 08/23/2024 1:45 PM EST Office Visit Urology, [facility] [address] [place] [id number] Alejo Hodge MD [address] [place] [id number] Scheduled Procedures Name Priority Associated Diagnoses Date/Ti me COLONOSCOPY FLEXIBLE PROXIMAL DIAGNOSTIC Recall Special screening for malignant neoplasms, colon 08/15/2024 8:30 AM EST Health Maintenance Due Date Last Done Comments Zoster Vaccines (1 of 2) 1995 Adult Wellness Visit 2011 Colonoscopy 03/05/2012 03/05/2011 COVID-19 Vaccine ( season) 2024 01/28/2021, 01/07/2021, 12/13/2020 Albumin/Creatinine Ratio 08/14/2024 08/14/2023 CKD PHOS USE SMARTSET [id number] 08/14/2024 08/14/2023 GFR 09/10/2024 03/11/2024, 01/13, 08/14/2023, Additional history exists CKD HGB USE SMARTSET 83657 03/11/202503/11, 03/11/2024, 08/14/2023, Additional history exists O2 ASSESSMENT COMPLETED IN PAST YEAR FOR COPD 03/11/2025 03/11/2024 Depression Monitoring 07/14/2025 07/14/2024, 024 DTap/Tdap Vaccines (3 - Td or Tdap) 02/27/2033 02/27/2023, 05/30/2009 RETIRED - COLONOSCOPY-ANNUAL AGES 18-100 Discontinued 03/05/2011 Pneumococcal Vaccine: 65+ Years Completed 05/21/2018, 02/24/2017, 08/15/2010 Alpha-1 Antitrypsin Completed 10/24/2021 Influenza Vaccine (FLU shot) Completed 06/20/2024, 06/20/2024, 06/12/2023, Additional history exists HPV (Gardasil) Vaccine Aged Out No lo nger eligible based on patient's age to complete this topic Hepatitis B Vaccine Aged Out No longe r eligible based on patient's age to complete this topic MENINGOCOCCAL (MENACTRA/MENVEO) Aged Out No longer eligible based on patient's age to complete this topic documented as of this encounter Medical Devices Not on filedocumented as of this encounter Advance Directives * Full Code (Latest Code Status on File) Date Activated Date Inactivated Comments 03/11/2024 1:47 PM 03/12/2024 3:22 PM This order r eflects the patients wishes and were consensually agreed upon. Question Answer Comments Discussion of Advance Direct luanne occurred with: Not Discussed due to patient's condition Care Teams International Project Engineer Relationship Specialty Start Date End Date David España MD [address] [place] [phone] PCP - General Family Medicine 01/21/21 documented as of this encounter
[2024-07-16] MEDS: ASPIRIN 81 MG CHEW PO STA (16:16)
[2024-07-16] MEDS: LORazepam 1 MG TAB PO STA (16:19)
[2024-07-16] MEDS: ALUMINUM/MAGNESIUM SUSP 30 ML UDC PO STA (16:19)
--- NOTE | 2024-07-16 16:19 | Emergency Department Note ---
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 Was just sitting watching football game when this occurred. No significant stimulant use his state of alcohol usage today. No trauma. No syncope or presyncope or dizziness reported. Denies difficulty breathing. Pain does go a little bit to the back but not of the abdomen jaws or arms by his report. Denies nausea. States he has been trembly all day and does use Ativan regularly to help with his anxiety. Denies heartburn symptoms. Told daughter and came here for evaluation. Was seen here last night for chest discomfort. States today it is a sharp pressure about a 2 or 3 out of 10 in nature this been constant since onset. States it feels somewhat different than the pain he had last night but is unable to elaborate further. No leg swelling or recent travel. Patient has had some oral intake today and some eggs earlier. PAST MEDICAL HISTORY: As noted above MEDICATIONS: Reviewed home medications does not include aspirin but does include lorazepam SOCIAL HISTORY: Distant former smoker, no recent alcohol use PHYSICAL EXAM: GENERAL: alert and oriented daughter at bedside appears slightly tremulous, legs crossed Head: normocephalic and atraumatic EYES: No injection, discharge or icterus. EOMI. NECK: Trachea midline. Good range of motion ENT: Mucous membranes pink and moist. LUNGS: Airway patent. No retractions. Breath sounds clear with good air entry bilaterally. HEART: Regular rate and rhythm. No chest wall tenderness ABDOMEN: Soft and non-tender, without guarding or rebound. SKIN: Acyanotic, warm, dry, without rashes EXTREMITIES: Without swelling, tenderness or deformity NEUROLOGICAL: No focal deficits moving all extremities with mild arm tremor. No aphasia. No facial droop or slurred speech. Normal strength and tone in the extremities. Sensation to gross touch normal. Ambulatory. EK bpm sinus rhythm with occasional PVC. No acute ST segment elevation or depression with QTc of 453. CONTINUOUS CARDIAC MONITORING: was ordered and showed a heart rate of 60s to 70s bpm in normal sinus rhythm occasional PVCs Patient's laboratory studies and imaging reviewed. Differential includes Cardiac ischemia, aortic dissection, pulmonary embolism, pneumothorax, pneumonia, pericarditis, myocarditis, esophageal rupture, GERD, cholecystitis, pancreatitis, musculoskeletal, as well as other pathologies. IMPRESSION/MEDICAL DECISION MAKING: EKG obtained without acute ST segment elevation appreciable. Patient with mild consistent chest pain of the past 45 minutes. Given aspirin, GI cocktail, and some Ativan as he does appear somewhat tremulous here. Has a history of some anxiety probably at least partially explaining some of the tremor. No focal neurological deficits however is keenly awake and alert. Is noted to be hypertensive on arrival but not tachycardic, febrile, or hypoxic. Reviewed medical record and patient was seen here last evening and discharged home for chest discomfort. Did review and the patient was hospitalized this past week for chest discomfort rule out overnight in the hospital without acute findings found. Description seems somewhat similar to what the patient is describing today. Did have a CTA several days ago with no findings of PE or dissection reported. 1 view chest x-ray obtained today per my interpretation and reviewed no evidence of pneumonia pneumothorax or significant pulmonary edema/effusion. Report questions maybe a little bit of atelectasis bronchitis and lipase but patient without respiratory symptoms I believe this is artifactual. Doubt infection. Chronic hyponatremia. Normal troponin. No evidence of hepatitis or pancreatitis on labs. Patient's called and with his permission updated her and she request that he states has not been sleeping at home and has had continuous ongoing symptoms. She states is not functional at home and she is concerned about his wellbeing. Discussed with patient the findings as well as his discussion with him and his daughter at bedside. Patient still states he has some discomfort on the chest. Discussion with patient, patient's daughter, and again the input from the over the phone. Patient evidently again still has some mild chest pain and is quite anxious about this and not functional home given this. Discussed with the hospitalist team here for further observation. DIAGNOSIS: Atypical chest pain, anxiety DISPOSITION: Hospitalist will evaluate Patient was agreeable with this plan. Past Med/Surg History Problem List (Updated 07/16/24 @ 17:57 by Elvis Ruelas M.D.) Anxiety (Acute) Atypical chest pain (Acute) Chest pain (Acute) Abdominal bloating Squamous cell carcinoma of glottis Chest pain (Acute) Acute hyponatremia (Acute) Dry mouth (Acute) Nausea (Acute) Encounter for pre-operative examination Medical History Esophageal cancer S/P radiation therapy Acute hyponatremia Diverticulitis Lung nodules monitoring-once every 6 months-1 year Chronic obstructive pulmonary disease inh prn History of COVID-19 10/2020, test in [place], not hosp; fatigue, body aches>resolved in 1 week Anxiety Surgical History History of right cataract surgery Hx laparoscopic cholecystectomy Hx of colonoscopy Hx of sinus surgery Hx of tonsillectomy Social History Smoking Status: Former smoker Second Hand Exposure: No; Do You Dip or Chew Tobacco: No; Hx Alcohol Use: No Hx Substance Use: No Preferred Language: Ugandan Communication Ability: Effective Cigarette Maker Required: No Beliefs That Will Affect Care: None Current Living Situation: Spouse Feels Safe at Home: Yes Assistive Devices: Glasses Allergies Allergies Allergy/AdvReac Type Severity Reaction Status Date / Time bee venom protein (honey bee) Allergy Severe SWELLING Verified 07/16/24 18:34 Penicillins Allergy Intermediate RASH Verified 07/16/24 18:34 hydromorphone AdvReac Mild VOMITING Verified 07/16/24 18:34 Home Meds Home Medications Medication Instructions Recorded Confirmed albuterol sulfate 90 mcg/actuation 2 puff inhalation QID PRN 10/15/22 07/16/24 aerosol inhaler Shortness Of Breath fluticasone propionate 50 2 spray intranasal QAM 10/15/22 07/16/24 mcg/actuation nasal spray,suspension lorazepam 1 mg tablet 1 mg PO TID 10/15/22 07/16/24 azelastine 137 mcg (0.1 %) nasal 1 spray intranasal DAILY 07/09/24 07/16/24 spray prochlorperazine maleate 5 mg 5 mg PO DIRECTED PRN n/v 07/09/24 07/16/24 tablet hydrocodone 7.5 mg-acetaminophen 15 ml PO Q4H PRN Pain 07/16/24 07/16/24 325 mg/15 mL oral solution mirtazapine 30 mg tablet 30 mg PO HS 07/16/24 07/16/24 pantoprazole 40 mg tablet,delayed 40 mg PO HS 07/16/24 07/16/24 release Previous Rx's Medication Instructions Recorded dicyclomine 10 mg capsule 10 mg PO TID PRN abdominal pain 06/30/24 #20 caps metoclopramide HCl 5 mg tablet 5 mg PO Q8H PRN nausea and 06/30/24 vomiting #14 tabs Results & Data (ED) Vital Signs Vital Signs - 24 hr 07/16/24 15:57 07/16/24 16:11 07/16/24 16:11 Temperature 36.6 C Temperature Source Temporal Artery Scan Pulse Rate 78 Pulse Rate [Apical] 69 Pulse Rhythm Regular Pulse Strength Normal Respiratory Rate 20 17 Respiratory Effort / Characteristics Non-Labored Spontaneous Non-Labored Respiratory Depth Normal Normal Respiratory Pattern Regular Regular Blood Pressure 184/69 H Blood Pressure [Right Arm] Blood Pressure Mean 107 Blood Pressure Mean [Right Arm] Blood Pressure Position Sitting Blood Pressure Position [Right Arm] Pulse Oximetry 96 98 98 Oxygen Delivery Method Room Air Room Air Room Air Sepsis Recent Fever Within 48 Hours No Sepsis New/Unexplained Change in Mental Status No Sepsis Action Taken by Nursing No Action Required 07/16/24 16:11 07/16/24 16:27 07/16/24 17:00 Temperature Temperature Source Pulse Rate 68 69 Pulse Rate [Apical] 67 Pulse Rhythm Pulse Strength Respiratory Rate 18 25 H Respiratory Effort / Characteristics Non-Labored Spontaneous Respiratory Depth Normal Respiratory Pattern Regular Blood Pressure Blood Pressure [Right Arm] 150/86 H Blood Pressure Mean Blood Pressure Mean [Right Arm] 107 Blood Pressure Position Blood Pressure Position [Right Arm] Semi-fowlers Pulse Oximetry 98 99 Oxygen Delivery Method Room Air Room Air Sepsis Recent Fever Within 48 Hours Sepsis New/Unexplained Change in Mental Status Sepsis Action Taken by Nursing 07/16/24 17:39 07/16/24 18:08 07/16/24 18:37 Temperature Temperature Source Pulse Rate Pulse Rate [Apical] 65 65 66 Pulse Rhythm Pulse Strength Respiratory Rate 17 13 19 Respiratory Effort / Characteristics Non-Labored Spontaneous Non-Labored Spontaneous Non-Labored Spontaneous Respiratory Depth Normal Normal Normal Respiratory Pattern Regular Regular Blood Pressure Blood Pressure [Right Arm] 167/86 H 176/92 H Blood Pressure Mean Blood Pressure Mean [Right Arm] 113 120 Blood Pressure Position Blood Pressure Position [Right Arm] Semi-fowlers Pulse Oximetry 98 99 98 Oxygen Delivery Method Room Air Room Air Room Air Sepsis Recent Fever Within 48 Hours Sepsis New/Unexplained Change in Mental Status Sepsis Action Taken by Nursing 07/16/24 19:12 Temperature Temperature Source Pulse Rate 67 Pulse Rate [Apical] Pulse Rhythm Pulse Strength Respiratory Rate 16 Respiratory Effort / Characteristics Respiratory Depth Respiratory Pattern Blood Pressure 179/93 H Blood Pressure [Right Arm] Blood Pressure Mean 121 Blood Pressure Mean [Right Arm] Blood Pressure Position Blood Pressure Position [Right Arm] Pulse Oximetry 98 Oxygen Delivery Method Room Air Sepsis Recent Fever Within 48 Hours Sepsis New/Unexplained Change in Mental Status Sepsis Action Taken by Nursing Laboratory Data 07/16/24 16:04 07/16/24 16:04 Lab Results 07/16/24 Range/Units 16:04 WBC 7.68 (4.8-10.8) K/ul RBC 4.79 (4.70-6.10) M/uL Hgb 14.8 (14.0-18.0) g/dl Hct 40.1 L (42.0-52.0) % MCV 83.7 (80.0-100.0) fL MCH 30.9 (25.0-34.0) pg MCHC 36.9 H (32.0-36.0) g/dL RDW Std Deviation 38.8 (36.4-46.3) fL RDW Coeff of Zohra 12.8 (11.5-14.5) % Plt Count 184 (130-400) K/uL MPV 8.3 L (9.4-12.4) fL Immature Gran % (Auto) 0.3 % Neut % (Auto) 82.2 % Lymph % (Auto) 7.4 % [place] % (Auto) 8.1 % Eos % (Auto) 1.6 % Baso % (Auto) 0.4 % Neut # (Auto) 6.32 (1.40-6.50) K/uL Lymph # (Auto) 0.57 L (1.20-3.40) K/uL [place] # (Auto) 0.62 H (0.11-0.59) K/uL Eos # (Auto) 0.12 (0.00-0.50) K/uL Baso # (Auto) 0.03 (0.00-0.20) K/uL Immature Gran # (Auto) 0.02 (0.01-0.20) K/uL PT 10.9 (9.0-12.0) Seconds INR 1.0 (0.9-1.1) APTT 28 (21-31) Seconds PTT Ratio 1.0 Sodium 129 L (136-145) mmol/L Potassium 3.8 (3.5-5.1) mmol/L Chloride 94 L (98-107) mmol/L Carbon Dioxide 26 (21-32) mmol/L Anion Gap 9 (3-11) BUN 7 (6-23) mg/dl Creatinine 0.81 (0.6-1.4) mg/dl Est Cr Clr Drug Dosing 70.3 ml/min eGFR 90.25 BUN/Creatinine Ratio 8.6 L (10-20) Glucose 107 H (70-99(Fasting)) mg/dl Calcium 10.3 (8.6-10.3) mg/dl Total Bilirubin 0.8 (0.2-1.0) mg/dl AST 17 (13-39) U/L ALT 16 (7-52) U/L Alkaline Phosphatase 65 (34-104) U/L Troponin I High Sens 5.1 (0-20) pg/ml Total Protein 7.3 (6.0-8.3) gm/dl Albumin 4.4 (3.4-5.0) gm/dl Globulin 2.9 (2.5-4.0) gm/dl Albumin/Globulin Ratio 1.5 (0.9-2) Lipase 23 (11-82) U/L Administered Medications Sodium Chloride (Nss) 1,000 mls @ 125 mls/hr IV .Q8H JANINE Stop: 07/17/24 18:29 Last Admin: 07/16/24 18:45 Dose: 125 mls/hr Documented By: NISSA Discontinued Medications Al Hydrox/Mg Hydrox/Simethicone (Aluminum/Magnesium Susp 30 Ml Udc) 30 ml PO NOW STA Stop: 07/16/24 16:12 Last Admin: 07/16/24 16:19 Dose: 30 ml Documented By: BOUCHRA Aspirin (Aspirin 81 Mg Chew) 324 mg PO NOW STA Stop: 07/16/24 16:12 Last Admin: 07/16/24 16:16 Dose: 324 mg Documented By: NRB Lorazepam (Lorazepam 1 Mg Tab) 1 mg PO NOW STA Stop: 07/16/24 16:12 Last Admin: 07/16/24 16:19 Dose: 1 mg Documented By: BOUCHRA Simethicone (Simethicone 80 Mg Chew) 80 mg PO NOW ONE Stop: 07/16/24 18:34 Last Admin: 07/16/24 19:11 Dose: 80 mg Documented By: QUIRINO Imaging Data Radiologist's Impression: Chest X-Ray 07/16/24 16:02 EXAM: Radiograph of the Chest 1 View INDICATION: Chest pain. TECHNIQUE: Frontal view of the chest. COMPARISON: 07/10/2024 FINDINGS: Lungs and pleural spaces: New minimal asymmetric interstitial thickening noted in the right lower lung. No consolidation. No pulmonary edema. No pleural effusion or pneumothorax. Heart: Shape and configuration within normal limits allowing for technique. Mediastinum: Normal contour. Bones/joints: No fracture, erosion or dislocation. Soft tissues: No abnormality noted. No radiopaque foreign body noted. Upper abdomen: No abnormality noted. IMPRESSION: New mild interstitial prominence in the right lung base may reflect vascular crowding or mild bronchitis. ACT 112: Positive. There are findings on this exam that require communication between the performing entity and the patient following Patient Test Result Information Act ([place] ACT 112) guidelines. Electronically signed by Tianna Edwards 07-16-2024 4:58 PM Discharge Plan Visit Data Chief Complaint: Chest Pain Stated Complaint: CHEST PAIN ED Provider: Elvis Ruelas Discharge Problem: Atypical chest pain, Anxiety Patient Disposition: Being Evaluated by Hospitalist Forms Stand Alone Forms: [facility] Prescriptions Prescriptions: No Action lorazepam 1 mg Tablet 1 mg PO TID fluticasone propionate 50 mcg/actuation [place],Suspension 2 spray INTRANASAL QAM Rx Instructions: administer into each nostril albuterol sulfate 90 mcg/actuation Hfa Aerosol Inhaler 2 puff INHALATION QID PRN (Reason: Shortness Of Breath) dicyclomine 10 mg capsule 10 mg PO TID PRN (Reason: abdominal pain) Qty: 20 0RF metoclopramide HCl 5 mg tablet 5 mg PO Q8H PRN (Reason: nausea and vomiting) Qty: 14 0RF pantoprazole 40 mg tablet,delayed release (DR/EC) 40 mg PO HS mirtazapine 30 mg tablet 30 mg PO HS hydrocodone-acetaminophen 7.5-325 mg/15 mL solution 15 ml PO Q4H PRN (Reason: Pain) prochlorperazine maleate 5 mg tablet 5 mg PO DIRECTED PRN (Reason: n/v) azelastine 137 mcg (0.1 %) spray,non-aerosol 1 spray INTRANASAL DAILY Referrals Referrals: David Enriquez MD [Primary Care Provider] -
[2024-07-16 16:23] LABS: Basophils # (auto) 0.03 K/uL (0.00-0.20); Basophils % (auto) 0.4 %; Eosinophils # (auto) 0.12 K/uL (0.00-0.50); Eosinophils % (auto) 1.6 %; Hematocrit (blood only) 40.1 % (42.0-52.0); Hemoglobin 14.8 g/dl (14.0-18.0); Immature Granulocytes # (auto) 0.02 K/uL (0.01-0.20); Immature Granulocytes % (auto) 0.3 %; Lymphocytes # (auto) 0.57 K/uL (1.20-3.40); Lymphocytes % (auto) 7.4 %; Mean Corpuscular Hemoglobin 30.9 pg (25.0-34.0); Mean Corpuscular Hgb Conc 36.9 g/dL (32.0-36.0); Mean Corpuscular Volume 83.7 fL (80.0-100.0); Mean Platelet Volume 8.3 fL (9.4-12.4); Monocytes # (auto) 0.62 K/uL (0.11-0.59); Monocytes % (auto) 8.1 %; Neutrophils # (auto) 6.32 K/uL (1.40-6.50); Neutrophils % (auto) 82.2 %; Platelet Count 184 K/uL (130-400); RDW Coefficient of Variation 12.8 % (11.5-14.5); RDW Standard Deviation 38.8 fL (36.4-46.3); Red Blood Count 4.79 M/uL (4.70-6.10); White Blood Count 7.68 K/ul (4.8-10.8)
[2024-07-16 16:34] LABS: Albumin Globulin Ratio 1.5 (0.9-2); Albumin Level 4.4 gm/dl (3.4-5.0); BUN Creatinine Ratio 8.6 (10-20); Bilirubin,Total 0.8 mg/dl (0.2-1.0); Calcium 10.3 mg/dl (8.6-10.3); Creatinine Clr Calc Pharmacy 70.3 ml/min; Globulin 2.9 gm/dl (2.5-4.0); Potassium 3.8 mmol/L (3.5-5.1); Total Protein 7.3 gm/dl (6.0-8.3)
[2024-07-16 16:40] LABS: Troponin I High Sensitivity 5.1 pg/ml (0-20)
[2024-07-16 16:47] LABS: Partial Thromboplastin Time 28 Seconds (21-31); Prothrombin Time 10.9 Seconds (9.0-12.0)
--- NOTE | 2024-07-16 16:58 | XRay Report ---
EXAM: Radiograph of the Chest 1 View INDICATION: Chest pain. TECHNIQUE: Frontal view of the chest. COMPARISON: 07/10/2024 FINDINGS: Lungs and pleural spaces: New minimal asymmetric interstitial thickening noted in the right lower lung. No consolidation. No pulmonary edema. No pleural effusion or pneumothorax. Heart: Shape and configuration within normal limits allowing for technique. Mediastinum: Normal contour. Bones/joints: No fracture, erosion or dislocation. Soft tissues: No abnormality noted. No radiopaque foreign body noted. Upper abdomen: No abnormality noted. IMPRESSION: New mild interstitial prominence in the right lung base may reflect vascular crowding or mild bronchitis. ACT 112: Positive. There are findings on this exam that require communication between the performing entity and the patient following Patient Test Result Information Act ([place] ACT 112) guidelines. Electronically signed by Tianna Edwards 07-16-2024 4:58 PM
[2024-07-16] MEDS ORDERED: hydrALAZINE HCL 20 MG/ML VIAL IV PRN (18:28)
--- NOTE | 2024-07-16 18:29 | History & Physical Report ---
Date of Service July 16, 2024 Assessment & Plan (1) Atypical chest pain: (2) Anxiety: Plan #Acute on chronic chest pain with recent extensive cardiac w/u #Dyspepsia #MSK pain -patient has had recent extensive cardiac w/u, but without recent cardiology referral, I will consult them, though I am less clear the etiology of his chest pain is cardiac -psych consult as well, likely some component of anxiety -stat trops/EKG if changes in cardiac pain -pain control #Htn urgency -hydralazine PRN #Hx SCC glottis/larynx w/recent radiation -full liquid diet #COPD -duonebs if SOB #MDD, JOSE #HLD #Dyspepsia -home meds IVF DVT ppx History of Present Illness Chief Complaint: cp Primary Care Provider: David Enriquez MD 78M [facility] squamous cell carcinoma of glottis/larynx s/p recent radiation treatment, COPD, recurrent MDD, JOSE, hyperlipidemia and ongoing dyspepsia who presents to the ED with chest pain. Of note patient has been seen for similar complaints multiple times in the last few weeks, with repeated negative troponins, CT chest, CT abdomen pelvis, EKG, echocardiogram. Today patient states that he had some non-exertional cp in his L chest without significant other symptoms. On my evaluation patient states that he thinks it could be related to either his dyspepsia or his MSK back pain. When asked about why he believes this connection exists, patient has difficulty describing his symptoms further. Patient and family do not feel comfortable returning home. Allergies Allergy/AdvReac Type Severity Reaction Status Date / Time bee venom protein (honey bee) Allergy Severe SWELLING Verified 07/16/24 18:34 Penicillins Allergy Intermediate RASH Verified 07/16/24 18:34 hydromorphone AdvReac Mild VOMITING Verified 07/16/24 18:34 Home Medications Medication Instructions Recorded Confirmed Type albuterol sulfate 90 mcg/actuation 2 puff inhalation QID PRN 10/15/22 07/10/24 History aerosol inhaler Shortness Of Breath fluticasone propionate 50 2 spray intranasal QAM 10/15/22 07/10/24 History mcg/actuation nasal spray,suspension lorazepam 1 mg tablet 1 mg PO BID 10/15/22 07/10/24 History dicyclomine 10 mg capsule 10 mg PO TID PRN abdominal pain 06/30/24 07/10/24 Rx #20 caps metoclopramide HCl 5 mg tablet 5 mg PO Q8H PRN nausea and 06/30/24 07/10/24 Rx vomiting #14 tabs azelastine 137 mcg (0.1 %) nasal 1 spray intranasal DAILY 07/09/24 07/10/24 History spray prochlorperazine maleate 5 mg 5 mg PO DIRECTED PRN n/v 07/09/24 07/10/24 History tablet hydrocodone 7.5 mg-acetaminophen 15 ml PO Q4H PRN Pain 07/16/24 07/16/24 History 325 mg/15 mL oral solution mirtazapine 30 mg tablet 30 mg PO HS 07/16/24 07/16/24 History pantoprazole 40 mg tablet,delayed 40 mg PO QAM 07/16/24 07/16/24 History release Past Med/Surg History Problem List (Updated 07/16/24 @ 17:57 by Elvis Ruelas M.D.) Anxiety (Acute) Atypical chest pain (Acute) Chest pain (Acute) Abdominal bloating Squamous cell carcinoma of glottis Chest pain (Acute) Acute hyponatremia (Acute) Dry mouth (Acute) Nausea (Acute) Encounter for pre-operative examination Medical History Esophageal cancer S/P radiation therapy Acute hyponatremia Diverticulitis Lung nodules monitoring-once every 6 months-1 year Chronic obstructive pulmonary disease inh prn History of COVID-19 10/2020, test in [place], not hosp; fatigue, body aches>resolved in 1 week Anxiety Surgical History History of right cataract surgery Hx laparoscopic cholecystectomy Hx of colonoscopy Hx of sinus surgery Hx of tonsillectomy Social History Smoking Status: Former smoker Second Hand Exposure: No; Do You Dip or Chew Tobacco: No; Hx Alcohol Use: No Hx Substance Use: No Preferred Language: Macedonian Communication Ability: Effective Engineer Conductor Required: No Beliefs That Will Affect Care: None Current Living Situation: Spouse Feels Safe at Home: Yes Assistive Devices: Glasses Review of Systems Constitutional: no fever, no body aches and no weakness Cardiovascular: + chest pain; no chest pain with activit y, no dyspnea at rest, no dyspnea on exertion, no palpitations, no syncope and no edema Gastrointestinal: + belching and + bloating Psychiatric: + anxiety Physical Exam Constitutional: WD/WN, vitals as above Respiratory: normal respiratory effort, lungs clear to auscultation Cardiovascular: RRR, no murmur, no edema Psychiatric: A+Ox3, euthymic affect Results & Data Results & Data Vital Signs (Past 12 Hours) Vital Signs Temp Pulse Pulse Resp BP BP Pulse Ox 07/16/24 18:08 65 13 167/86 H 99 07/16/24 17:39 65 17 98 07/16/24 17:00 67 25 H 150/86 H 99 07/16/24 16:27 69 07/16/24 16:11 68 18 98 07/16/24 16:11 69 17 98 07/16/24 16:11 98 07/16/24 15:57 36.6 C 78 20 184/69 H 96 O2 Del Method 07/16/24 18:08 Room Air 07/16/24 17:39 Room Air 07/16/24 17:00 Room Air 07/16/24 16:27 07/16/24 16:11 Room Air 07/16/24 16:11 Room Air 07/16/24 16:11 Room Air 07/16/24 15:57 Room Air Laboratory Results Abnormal lab results 07/16/24 Range/Units 16:04 Hct 40.1 L (42.0-52.0) % MCHC 36.9 H (32.0-36.0) g/dL MPV 8.3 L (9.4-12.4) fL Lymph # (Auto) 0.57 L (1.20-3.40) K/uL [place] # (Auto) 0.62 H (0.11-0.59) K/uL Sodium 129 L (136-145) mmol/L Chloride 94 L (98-107) mmol/L BUN/Creatinine Ratio 8.6 L (10-20) Glucose 107 H (70-99(Fasting)) mg/dl Diagnostic Findings Chest X-Ray 07/16/24 16:02 EXAM: Radiograph of the Chest 1 View INDICATION: Chest pain. TECHNIQUE: Frontal view of the chest. COMPARISON: 07/10/2024 FINDINGS: Lungs and pleural spaces: New minimal asymmetric interstitial thickening noted in the right lower lung. No consolidation. No pulmonary edema. No pleural effusion or pneumothorax. Heart: Shape and configuration within normal limits allowing for technique. Mediastinum: Normal contour. Bones/joints: No fracture, erosion or dislocation. Soft tissues: No abnormality noted. No radiopaque foreign body noted. Upper abdomen: No abnormality noted. IMPRESSION: New mild interstitial prominence in the right lung base may reflect vascular crowding or mild bronchitis. ACT 112: Positive. There are findings on this exam that require communication between the performing entity and the patient following Patient Test Result Information Act ([place] ACT 112) guidelines. Electronically signed by Tianna Edwards 07-16-2024 4:58 PM Code Status & VTE Plan VTE Prophylaxis Plan VTE Prophylaxis will be ordered: Yes
[2024-07-16] MEDS ORDERED: HYDROCODONE/ACETAMOPHEN 5/325MG TAB PO PRN (18:33)
[2024-07-16] MEDS: SODIUM CHLORIDE 0.9% 1,000 ML IV SCH (18:45)
[2024-07-16] MEDS: SIMETHICONE 80 MG CHEW PO ONE (19:11)
[2024-07-16] MEDS ORDERED: DICYCLOMINE HCL 10 MG CAP PO PRN (21:20)
[2024-07-16] MEDS ORDERED: METOCLOPRAMIDE HCL 5 MG TABLET PO PRN (21:20)
[2024-07-16] MEDS ORDERED: ACETAMINOPHEN 325 MG TAB PO PRN (21:20)
[2024-07-16] MEDS ORDERED: ALBUTEROL HFA 8 GM INHALER INH PRN (21:20)
[2024-07-16] MEDS: SIMETHICONE 80 MG CHEW PO PRN (22:03)
[2024-07-16] MEDS: LORazepam 1 MG TAB PO SCH (22:25)
[2024-07-16] MEDS: ENOXAPARIN INJ 40 MG/0.4 ML SYR SQ SCH (22:27)
[2024-07-16] MEDS: busPIRone 5 MG TAB PO SCH (22:27)
--- NOTE | 2024-07-16 22:54 | Communication Note ---
Date of Service: July 16, 2024 Patient with achy left-sided chest pain going to the arm and back. Nonpleuritic. No SOB. No response to nitroglycerin. EKG as per my interpretation rate 80, NSR, normal axis, T wave flattening septal leads AP Atypical chest pain Rule out aortic dissection given radiation to the back CT aortic dissection study
[2024-07-16] MEDS: NITROGLYCERIN SL 0.4 MG/TAB TAB SL STA (23:02)
[2024-07-16] MEDS ORDERED: oxyCODONE HCL IR 5 MG TAB (IMMEDIATE RELEASE) PO PRN (23:12)
[2024-07-16] MEDS: SODIUM CHLORIDE 0.9% 1,000 ML IV ONE (23:27)
[2024-07-16] MEDS: MoRPHine SULFATE 2 MG/ML CARP IV PRN (23:35)
[2024-07-17] MEDS: OPTIRAY 320 125ml IV ONE (00:02)
[2024-07-17] MEDS: MIRTAZAPINE TAB 15 MG TAB PO SCH (01:42)
[2024-07-17] MEDS: MELATONIN 3 MG TAB PO PRN (02:55)
[2024-07-17] MEDS: ALUMINUM/MAGNESIUM SUSP 30 ML UDC PO STA (04:55)
[2024-07-17] MEDS: FAMOTIDINE 20 MG TAB PO SCH (07:27)
[2024-07-17] MEDS: TAMSULOSIN HCL 0.4 MG CAP PO SCH (07:27)
[2024-07-17] MEDS: SENNA 8.6 MG TAB PO SCH (07:40)
[2024-07-17 07:55] LABS: Hematocrit (blood only) 37.7 % (42.0-52.0); Hemoglobin 13.7 g/dl (14.0-18.0); Mean Corpuscular Hemoglobin 30.8 pg (25.0-34.0); Mean Corpuscular Hgb Conc 36.3 g/dL (32.0-36.0); Mean Corpuscular Volume 84.7 fL (80.0-100.0); Mean Platelet Volume 8.4 fL (9.4-12.4); Platelet Count 159 K/uL (130-400); RDW Standard Deviation 39.8 fL (36.4-46.3); Red Blood Count 4.45 M/uL (4.70-6.10); White Blood Count 5.65 K/ul (4.8-10.8)
[2024-07-17 08:08] LABS: Albumin Globulin Ratio 1.7 (0.9-2); BUN Creatinine Ratio 6.9 (10-20); Bilirubin,Total 0.7 mg/dl (0.2-1.0); Calcium 9.8 mg/dl (8.6-10.3); Creatinine Clr Calc Pharmacy 65.4 ml/min; Globulin 2.4 gm/dl (2.5-4.0); Potassium 3.9 mmol/L (3.5-5.1); Total Protein 6.4 gm/dl (6.0-8.3)
[2024-07-17] MEDS ORDERED: ENOXAPARIN INJ 40 MG/0.4 ML SYR SQ SCH (09:00)
--- NOTE | 2024-07-17 10:16 | Cardiology Consultation ---
Date of Consultation July 17, 2024 Assessment & Plan (1) Atypical chest pain: (2) Hypertension: (3) Anxiety: (4) Squamous cell carcinoma of glottis: Plan Patient admitted with recurrent atypical chest pain, epigastric pain, abdominal pain. Recent radiation treatment to the neck area for SCC of the glottis. He has been evaluated several times in the last few weeks for similar complaints. HS troponin has been negative x3 this admission, along with past admissions. EKG demonstrates NSR without ischemic changes, occ PVC noted. Chest CTA is pending from last night. Chest pain currently resolved. This chart was completed in part utilizing Speech Voice Recognition Software. Grammatical errors, random word insertions, pronoun errors, and incomplete sentences are an occasional consequence of this system due to software limitations, ambient noise, and hardware issues. Any formal questions or concerns about the content, text, or information contained within the body of this dictation should be directly addressed to the provider for clarification. We had a long discussion about his uncontrolled hypertension noted on multiple admissions and since arrival. Patient is fairly adamant that his BP is typically not high and this is a situational componenet. He declines initiation of antihypertensive medication at this time. We discussed possibility of proceeding with ischemic work up given risk factors for CAD and intermittent chest pain. However, in order to proceed with stress testing, his BP should be fairly well controlled. I would recommend treatment of hypertension and then stress test. Patient declines antihypertensive medication and stress testing as an inpatient. Consider DSE vs nuclear stress test as an outpatient he had an echo last week during last admission with normal LVEF, mild LVH, no significant valvular disease. No further cardiac work up at this time, as patient declining medication changes and further testing. He is aware should he have recurrent chest pain, he should return to the ER. Message sent to hospitalist in regards to patient declining medication and work up at this time. Case discussed with Dr. Luz I spent a total of 45 minutes on the date of service in preparation, delivery, and documentation of the care provided to this patient, excluding any time spent in the performance of separately billed services. Lisa Downs PA-C Department of Cardiology, [facility] Supervising Physician Co-Signing Physician Notes I have reviewed the advanced practitioner's documentation on the date of service referenced in note, and I agree with, and take responsibility for the plan of care. I spent a total of [20] minutes coordinating, documenting, and providing care for this patient excluding time spent in the performance of separately billed services or time spent by another provider. 78-year-old male with known history of squamous cell carcinoma postradiation therapy, COPD, history of major depressive disorder, anxiety dyslipidemia presents with atypical left-sided chest pain patient reports symptoms of chest discomfort especially when he is anxious not associated with exertion. Workup has been negative Elevated blood pressure and chest discomfort with anxiety. Does not want medications for blood pressure or stress test at this time. Has been started on Lexapro Spine to be followed up as outpatient for stress testing. Will sign off please call with questions History of Present Illness Reason for Consultation: Chest pain; unspecified Requesting Physician: Alonzo Stuart Attending Physician: Dr. Luz History of Present Illness Patient presented to [facility] yesterday with complaints of atypical chest pain, abdominal pain. Records reviewed. History of squamous cell carcinoma of glottis/larynx finished radiation treatment recently, COPD with prior tobacco abuse, recurrent major depressive disorder, JOSE, hyperlipidemia and ongoing dyspepsia. He was admitted for atypical left sided chest pain last week with associated abdominal bloating. EKG at that time demonstrating NSR, no acute ischemic changes. HS troponin negative. He had echo which revealed normal LVEF at 65-70%, mild LVH, grade I diastolic dysfunction, aortic valve sclerosis without stenosis, borderline RV enlargement. Ultimately it was felt his symptoms were related to dyspepsia/GI etiology. Recent diagnosis of enteritis noted on CT scan of the abdomen in 06/30/24. Patient had similar symptoms with epigastric pain, abdominal bloating and pain yesterday. he came to the ER for evaluation. EKG without ischemic changes. HS troponin negative x3. Last night he had left sided chest pain radiating to left shoulder, while resting in bed. Described as a a sharp stabbing pain. Hospitalist evaluated. EKG without ischemic changes once again. HS torponin negative. He was sent for Chest CTA - report not yet resulted. Pain resolved with morphine. SL nitro was provided without relief. Patient denies history of cardiac problems. No prior CAD, VA, CHF, valvular disease. This morning, at time of consult, patient resting comfortably. Prior complaints of chest pain now resolved. he notes ongoing "gas" with intermittent abdominal pain, but has improved since admission. His BP has been uncontrolled since admission. Mild LVH noted on recent echo. He reports his BP is always controlled at home, and that "this machine is wrong". He declines initiation of BP medication at this time. Allergies Allergy/AdvReac Type Severity Reaction Status Date / Time bee venom protein (honey bee) Allergy Severe SWELLING Verified 07/16/24 18:34 Penicillins Allergy Intermediate RASH Verified 07/16/24 18:34 hydromorphone AdvReac Mild VOMITING Verified 07/16/24 18:34 Home Medications Medication Instructions Recorded Confirmed Type albuterol sulfate 90 mcg/actuation 2 puff inhalation QID PRN 10/15/22 07/16/24 History aerosol inhaler Shortness Of Breath fluticasone propionate 50 2 spray intranasal QAM 10/15/22 07/16/24 History mcg/actuation nasal spray,suspension lorazepam 1 mg tablet 1 mg PO TID 10/15/22 07/16/24 History dicyclomine 10 mg capsule 10 mg PO TID PRN abdominal pain 06/30/24 07/16/24 Rx #20 caps metoclopramide HCl 5 mg tablet 5 mg PO Q8H PRN nausea and 06/30/24 07/16/24 Rx vomiting #14 tabs azelastine 137 mcg (0.1 %) nasal 1 spray intranasal DAILY 07/09/24 07/16/24 History spray prochlorperazine maleate 5 mg 5 mg PO DIRECTED PRN n/v 07/09/24 07/16/24 History tablet hydrocodone 7.5 mg-acetaminophen 15 ml PO Q4H PRN Pain 07/16/24 07/16/24 History 325 mg/15 mL oral solution mirtazapine 30 mg tablet 30 mg PO HS 07/16/24 07/16/24 History pantoprazole 40 mg tablet,delayed 40 mg PO HS 07/16/24 07/16/24 History release Patient History Medical History Esophageal cancer S/P radiation therapy Acute hyponatremia Diverticulitis Lung nodules monitoring-once every 6 months-1 year Chronic obstructive pulmonary disease inh prn History of COVID-19 10/2020, test in [place], not hosp; fatigue, body aches>resolved in 1 week Anxiety Surgical History History of right cataract surgery Hx laparoscopic cholecystectomy Hx of colonoscopy Hx of sinus surgery Hx of tonsillectomy Social History Smoking Status: Former smoker Smoking End Date: 2010; Second Hand Exposure: No; Do You Dip or Chew Tobacco: No; Hx Alcohol Use: No Hx Substance Use: No Preferred Language: Uzbek Communication Ability: Effective Photo Mask Processor Required: No Beliefs That Will Affect Care: None Current Living Situation: Family Feels Safe at Home: Yes Safety Concerns: Feels Safe At This Time Assistive Devices: Denture - Upper and Glasses Review of Systems Review of Systems: All systems reviewed & are unremarkable except as noted in HPI & below Physical Exam Constitutional: WD/WN, vitals as above well nourished; no acute distress Neck: + thick neck Respiratory: normal respiratory effort Auscultation: lungs clear to auscultation bilaterally; no crackles, no rales and no rhonchi Cardiovascular: Rate/Rhythm: regular rate and regular rhythm Heart Sounds: normal S1 and normal S2; no murmur Vessels: no JVD Extremities: no edema Gastrointestinal (Abdomen): normal bowel sounds, soft, nontender, no hepatosplenomegaly Neurologic: PERRL, EOMI, accommodation nl, no face palsy, no dysarthria Results & Data Vital Signs (Past 12 Hours) Vital Signs Temp Pulse Resp BP Pulse Ox O2 Del Method 07/17/24 07:47 36.5 C 73 18 160/81 H 94 Room Air Laboratory Results Cardiac Enzymes 07/16/24 07/16/24 07/17/24 Range/Units 16:04 23:32 07:28 AST 17 16 (13-39) U/L Troponin I High Sens 5.1 5.0 (0-20) pg/ml Coagulation 07/16/24 Range/Units 16:04 PT 10.9 (9.0-12.0) Seconds APTT 28 (21-31) Seconds CBC 07/16/24 07/17/24 Range/Units 16:04 07:28 WBC 7.68 5.65 (4.8-10.8) K/ul RBC 4.79 4.45 L (4.70-6.10) M/uL Hgb 14.8 13.7 L (14.0-18.0) g/dl Hct 40.1 L 37.7 L (42.0-52.0) % Plt Count 184 159 (130-400) K/uL Neut # (Auto) 6.32 (1.40-6.50) K/uL Lymph # (Auto) 0.57 L (1.20-3.40) K/uL [place] # (Auto) 0.62 H (0.11-0.59) K/uL Eos # (Auto) 0.12 (0.00-0.50) K/uL Baso # (Auto) 0.03 (0.00-0.20) K/uL Comprehensive Metabolic Panel 07/16/24 07/17/24 Range/Units 16:04 07:28 Sodium 129 L 134 L (136-145) mmol/L Potassium 3.8 3.9 (3.5-5.1) mmol/L Chloride 94 L 101 (98-107) mmol/L Carbon Dioxide 26 29 (21-32) mmol/L BUN 7 6 (6-23) mg/dl Creatinine 0.81 0.87 (0.6-1.4) mg/dl Glucose 107 H 97 (70-99(Fasting)) mg/dl Calcium 10.3 9.8 (8.6-10.3) mg/dl AST 17 16 (13-39) U/L ALT 16 15 (7-52) U/L Alkaline Phosphatase 65 56 (34-104) U/L Total Protein 7.3 6.4 (6.0-8.3) gm/dl Albumin 4.4 4.0 (3.4-5.0) gm/dl Intake and Output 07/16/24 07/17/24 07/17/24 23:59 06:59 14:59 Intake Total 1000 / 1000 Balance 1000 / 1000 Intake: IV 1000 / 1000 Sodium Chloride 0.9% 1,000 ml @ 1000 / 1000 75 mls/hr IV .[id number] ONE Rx#: [id number] Other: # Unmeasured Voids Weight Weight Measurement Method Diagnostic Findings Telemetry: N/A (not on telemetry) EKG reviewed from last night 07/16 at 23:01: NSR, normal EKG no acute ischemic changes PVC's resolved EKG upon arrival yesterday, 07/16 at 16:02: NSR with occ PVC No acute ischemic changes Chest CT report reviewed from 07/16 - report pending Chest X-Ray 07/16/24 16:02 EXAM: Radiograph of the Chest 1 View INDICATION: Chest pain. TECHNIQUE: Frontal view of the chest. COMPARISON: 07/10/2024 FINDINGS: Lungs and pleural spaces: New minimal asymmetric interstitial thickening noted in the right lower lung. No consolidation. No pulmonary edema. No pleural effusion or pneumothorax. Heart: Shape and configuration within normal limits allowing for technique. Mediastinum: Normal contour. Bones/joints: No fracture, erosion or dislocation. Soft tissues: No abnormality noted. No radiopaque foreign body noted. Upper abdomen: No abnormality noted. IMPRESSION: New mild interstitial prominence in the right lung base may reflect vascular crowding or mild bronchitis. ACT 112: Positive. There are findings on this exam that require communication between the performing entity and the patient following Patient Test Result Information Act ([place] ACT 112) guidelines. Electronically signed by Tianna Edwards 07-16-2024 4:58 PM Prior data reviewed (prior admission) Chest CTA reviewed from 07/10: IMPRESSION: 1. There is no evidence of pulmonary embolus in the main, lobar, or segmental pulmonary arteries. 2. Emphysema. 3. There is no airspace consolidation or pleural effusion. 4. Additional findings as above. Echo report reviewed dated 07/10/24: Normal LV size and function EF 65-70% Mild concentric LVH Grade I diastolic dysfunction Aortic valve sclerosis without stenosis Borderline RV enlargement RV systolic function is normal Medications Administered Current Inpatient Medications Acetaminophen (Acetaminophen 325 Mg Tab) 650 mg PO Q4H PRN PRN Reason: pain/fever Stop: 08/15/24 21:19 Hydrocodone Bitart/Acetaminophen (Hydrocodone/Acetamophen 5/325mg Tab) 1 tab PO Q6H PRN PRN Reason: Pain Stop: 07/31/24 10:20 Albuterol (Albuterol Hfa 8 Gm Inhaler) 2 puffs INH Q6R PRN PRN Reason: Shortness Of Breath Stop: 08/15/24 21:19 Buspirone HCl (Buspirone 5 Mg Tab) 5 mg PO BID JANINE Stop: 08/15/24 21:19 Last Admin: 07/17/24 07:27 Dose: 5 mg Dicyclomine HCl (Dicyclomine Hcl 10 Mg Cap) 10 mg PO TID PRN PRN Reason: abdominal pain Stop: 08/15/24 21:19 Enoxaparin Sodium (Enoxaparin Inj 40 Mg/0.4 Ml Syr) 40 mg SQ HS JANINE Stop: 08/15/24 21:44 Last Admin: 07/16/24 22:27 Dose: Not Given Famotidine (Famotidine 20 Mg Tab) 20 mg PO DAILY JANINE Stop: 08/16/24 08:59 Last Admin: 07/17/24 07:27 Dose: 20 mg Hydralazine HCl (Hydralazine Hcl 20 Mg/Ml Vial) 5 mg IV Q4H PRN PRN Reason: Blood Pressure - High Stop: 08/15/24 18:27 Lorazepam (Lorazepam 1 Mg Tab) 1 mg PO BID JANINE Stop: 08/15/24 21:19 Last Admin: 07/17/24 07:27 Dose: 1 mg Melatonin (Melatonin 3 Mg Tab) 3 mg PO HS PRN PRN Reason: Insomnia Stop: 08/15/24 21:19 Last Admin: 07/17/24 02:55 Dose: 3 mg Metoclopramide HCl (Metoclopramide Hcl 5 Mg Tablet) 5 mg PO Q8H PRN PRN Reason: nausea and vomiting Stop: 08/15/24 21:19 Mirtazapine (Mirtazapine Tab 15 Mg Tab) 30 mg PO HS JANINE Stop: 08/15/24 21:59 Last Admin: 07/17/24 01:42 EDT Dose: 30 mg Morphine Sulfate (Morphine Sulfate 2 Mg/Ml Carp) 2 mg IV Q3H PRN PRN Reason: Pain Stop: 07/30/24 23:11 Last Admin: 07/16/24 23:35 Dose: 2 mg Polyethylene Glycol (Polyethylene (Miralax) 17 Gm Pack) 17 gm PO DAILY PRN PRN Reason: Constipation Stop: 08/15/24 21:19 Sennosides (Senna 8.6 Mg Tab) 8.6 mg PO DAILY JANINE Stop: 08/16/24 08:59 Last Admin: 07/17/24 07:40 Dose: Not Given Simethicone (Simethicone 80 Mg Chew) 80 mg PO Q6H PRN PRN Reason: Flatulence Stop: 08/15/24 18:32 Last Admin: 07/16/24 22:03 Dose: 80 mg Tamsulosin HCl (Tamsulosin Hcl 0.4 Mg Cap) 0.4 mg PO DAILY JANINE Stop: 08/16/24 08:59 Last Admin: 07/17/24 07:41 Dose: Not Given (2) Hypertension Hypertension type: primary hypertension Qualified Code(s): I10 - Essential (primary) hypertension
[2024-07-17] MEDS ORDERED: HYDROCODONE/ACETAMOPHEN 5/325MG TAB PO PRN (10:21)
[2024-07-17 11:58] LABS: Urine Potassium 19.4 mmol/L
--- NOTE | 2024-07-17 13:32 | Psychiatric Consultation ---
Date of Consultation July 17, 2024 Impression / Recommendations Impression Concerned for MDD and JOSE, he c/o low mood, anhedonia, poor concentration, excess guilt, crying spells, disrupted sleep, excess worries especially about health problems. Concern for generalized physical symptoms of anxiety and recent MSK symptoms c/o could have triggered anxious ruminations. He reported h/o mild dementia but I am more concerned for pseudodementia given poor effort testing on MOCA and no clear memory deficits noted. He would benefit from a trial of SSRI antidepressant as he's only been on mirtazapine with poor adherence. He was educated about depression, antidepressants, importance of adherence, counseling options and what to expect moving forward. Can f/u with PCP for medication management. (1) MDD (major depressive disorder), recurrent episode, moderate: (2) Generalized anxiety disorder: (3) Anxiety about health: (4) Pseudodementia: Plan Escitalopram 5mg HS (inc to 10mg HS if tolerated) -continue Lorazepam and Mirtazapine Psych History Identifying Data 78 y/o male h/o depression, anxiety, squamous cell carcinoma of glottis/larynx s/p recent radiation treatment, COPD, recurrent MDD, JOSE, hyperlipidemia and ongoing dyspepsia who presented to the ED with chest pain. Recent cardiac w/u has been negative. Concern for psychogenic causes of anxiety and psychiatry consulted. Chief Complaint "Anxiety" History of Present Illness Chart review indicates negative cardiac w/u. reports pt trembling, and has poor sleep. Patient was seen alone. 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 Reports starting lorazepam 10 years ago by PCP. at that time was having stomach pain with continued visits to the doctor and negative medical workup; he was put on lorazepam and reports his pain subsided. Over the last 4 months anxiety has worsened. He reports recent trouble staying asleep, loss of interest in activities, excess guilt feeling responsible for his and his family situation, increased tearfulness and labile mood, increased anxious ruminations about the future and health stressors. He reports having a fair self worth and a good appetite. Reports recently having worsening arthritis pain in his shoulders and cervical area and he has been ruminating more about this. Reports that prior to coming in he was watching the football game at home and had anxious ruminations. He reports having a stable childhood with loving parents and no family history of psychiatric issues. Reports on recent cognitive exam he was unable to do the clock draw and it was frustrating and did not fully attempted. Denies that family has mentioned him getting lost, having memory problems, losing track of what he is saying in conversations. He denies current suicidal ideation or history of suicide attempts. He denies having panic symptoms. He denies a history of episodes of decreased need for sleep with elevated mood, energy, goal directed activity. Denies history of auditory visualizations. No past diagnosis of obstructive sleep apnea. Has been minimally adherent to mirtazapine at night. PCP was considering starting lamotrigine. Patient lives with his and eldest daughter. Reports stable home life. Allergies Allergy/AdvReac Type Severity Reaction Status Date / Time bee venom protein (honey bee) Allergy Severe SWELLING Verified 07/16/24 18:34 Penicillins Allergy Intermediate RASH Verified 07/16/24 18:34 hydromorphone AdvReac Mild VOMITING Verified 07/16/24 18:34 Home Medications Medication Instructions Recorded Confirmed Type albuterol sulfate 90 mcg/actuation 2 puff inhalation QID PRN 10/15/22 07/16/24 History aerosol inhaler Shortness Of Breath fluticasone propionate 50 2 spray intranasal QAM 10/15/22 07/16/24 History mcg/actuation nasal spray,suspension lorazepam 1 mg tablet 1 mg PO TID 10/15/22 07/16/24 History dicyclomine 10 mg capsule 10 mg PO TID PRN abdominal pain 06/30/24 07/16/24 Rx #20 caps metoclopramide HCl 5 mg tablet 5 mg PO Q8H PRN nausea and 06/30/24 07/16/24 Rx vomiting #14 tabs azelastine 137 mcg (0.1 %) nasal 1 spray intranasal DAILY 07/09/24 07/16/24 History spray prochlorperazine maleate 5 mg 5 mg PO DIRECTED PRN n/v 07/09/24 07/16/24 History tablet hydrocodone 7.5 mg-acetaminophen 15 ml PO Q4H PRN Pain 07/16/24 07/16/24 History 325 mg/15 mL oral solution mirtazapine 30 mg tablet 30 mg PO HS 07/16/24 07/16/24 History pantoprazole 40 mg tablet,delayed 40 mg PO HS 07/16/24 07/16/24 History release Patient History Medical History Esophageal cancer S/P radiation therapy Acute hyponatremia Diverticulitis Lung nodules monitoring-once every 6 months-1 year Chronic obstructive pulmonary disease inh prn History of COVID-19 10/2020, test in [place], not hosp; fatigue, body aches>resolved in 1 week Anxiety Surgical History History of right cataract surgery Hx laparoscopic cholecystectomy Hx of colonoscopy Hx of sinus surgery Hx of tonsillectomy Social History Smoking Status: Former smoker Smoking End Date: 2010; Second Hand Exposure: No; Do You Dip or Chew Tobacco: No; Hx Alcohol Use: No Hx Substance Use: No Preferred Language: Bengali Communication Ability: Effective Volleyball Coach Required: No Beliefs That Will Affect Care: None Current Living Situation: Family Feels Safe at Home: Yes Safety Concerns: Feels Safe At This Time Assistive Devices: Denture - Upper and Glasses Physical Exam Mental Examination: Appearance: Disheveled Eye Contact: Maintains Eye Contact Motor Behavior: Unremarkable Speech: Normal Mood: Euthymic and Calm Affect: Appropriate and Constricted Thought Process: Intact and Linear Thought Content: Intact Hallucinations: None Insight: Fair (to limited) Judgement: Fair (to limited, med non-adherence) Vital Signs (Past 24 Hours): Last Vital Signs Temp 36.5 C 07/17/24 07:47 Pulse 73 07/17/24 07:47 Resp 18 07/17/24 07:47 BP 160/81 H 07/17/24 07:47 Pulse Ox 94 07/17/24 07:47 O2 Del Method Room Air 07/17/24 07:47 Results & Data (PSY) Medications Administered Buspirone HCl (Buspirone 5 Mg Tab) 5 mg PO BID JANINE Stop: 08/15/24 21:19 Last Admin: 07/17/24 07:27 Dose: 5 mg Documented By: Admin: 07/16/24 22:27 Dose: Not Given Documented By: MARK Enoxaparin Sodium (Enoxaparin Inj 40 Mg/0.4 Ml Syr) 40 mg SQ HS JANINE Stop: 08/15/24 21:44 Last Admin: 07/16/24 22:27 Dose: Not Given Documented By: MARK Famotidine (Famotidine 20 Mg Tab) 20 mg PO DAILY JANINE Stop: 08/16/24 08:59 Last Admin: 07/17/24 07:27 Dose: 20 mg Documented By: KARYNA Lorazepam (Lorazepam 1 Mg Tab) 1 mg PO BID JANINE Stop: 08/15/24 21:19 Last Admin: 07/17/24 07:27 Dose: 1 mg Documented By: Admin: 07/16/24 22:25 Dose: 1 mg Documented By: MARK Melatonin (Melatonin 3 Mg Tab) 3 mg PO HS PRN PRN Reason: Insomnia Stop: 08/15/24 21:19 Last Admin: 07/17/24 02:55 Dose: 3 mg Documented By: KARSTEN Mirtazapine (Mirtazapine Tab 15 Mg Tab) 30 mg PO HS JANINE Stop: 08/15/24 21:59 Last Admin: 07/17/24 01:42 EDT Dose: 30 mg Documented By: BIMAL Morphine Sulfate (Morphine Sulfate 2 Mg/Ml Carp) 2 mg IV Q3H PRN PRN Reason: Pain Stop: 07/30/24 23:11 Last Admin: 07/16/24 23:35 Dose: 2 mg Documented By: BIMAL Sennosides (Senna 8.6 Mg Tab) 8.6 mg PO DAILY JANINE Stop: 08/16/24 08:59 Last Admin: 07/17/24 07:40 Dose: Not Given Documented By: KARYNA Simethicone (Simethicone 80 Mg Chew) 80 mg PO Q6H PRN PRN Reason: Flatulence Stop: 08/15/24 18:32 Last Admin: 07/16/24 22:03 Dose: 80 mg Documented By: BIMAL Tamsulosin HCl (Tamsulosin Hcl 0.4 Mg Cap) 0.4 mg PO DAILY JANINE Stop: 08/16/24 08:59 Last Admin: 07/17/24 07:41 Dose: Not Given Documented By: KARYNA [place] [address] IN/OBS CONSULT LVL 5,80M Patient Type New History Comprehensive Exam Comprehensive Medical Decision Making Moderate Complexity Diagnoses MDD (major depressive disorder), recurrent episode, moderate F33.1 Generalized anxiety disorder F41.1 Anxiety about health R45.89 Pseudodementia R41.89
[2024-07-17] MEDS: POLYETHYLENE (MIRALAX) 17 GM PACK PO PRN (13:43)
[2024-07-17] MEDS: LORazepam 1 MG TAB PO STA (13:43)
--- NOTE | 2024-07-17 14:18 | Hospitalist Progress Note ---
Date of Service July 17, 2024 Assessment & Plan (1) Atypical chest pain: (2) Anxiety: Plan Mr. 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 Patient with multiple ED presentations for the dame. Patient declined stress test or antihypertensive as he would "rather see what it does at home." Patient with noted anxious like symptoms, also with stiff neck posture due to history of chronic neck pain and suspect likely symptoms of cervical angina in addition to anxiety contributing to presentation. Patient to likely discharge tomorrow. #Acute on chronic chest pain with recent extensive cardiac w/u #Cervical angina, known DJD #Chronic pain -patient has had recent extensive cardiac w/u trop negative, EKG without ischemic changes Patient refuses antihypertensive medication Cardiology consulted -Patient declined inpatient stress testing or medication mgmt -Refer for OP stress test and BP monitoring as patient states his "bp is perfect when [he] isnt in the hospital" Continue home norco for pain Consider OP referral for Pain management and candidacy for SANTIAGO CTA personally reviewed no sign of active dissection noted #Generalized anxiety d/o discussed case with psych. reports concern for pseudodementia given poor effort during MOCA concern that recent health issues likely contributing to anxious ruminations -Continue home mirtazapine and encourage compliance -Continue home ativan -Start escitalopram 5mg qhs, if tolerated can increase to 10mg in future -Patient aware it will take up to a month before feeling relief #Htn urgency -hydralazine PRN #Hx SCC glottis/larynx w/recent radiation -full liquid diet #COPD -duonebs if SOB #MDD, JOSE #HLD #Dyspepsia -home meds DVT ppx Admission and Anticipated Discharge Date Admission Date: July 16, 2024 Subjective Evaluated patient multiple times at bedside Reports left arm pain, but then also endorses right Stresses that he cannot seem to parse out if its "anxiey" or "pain" or his "heart" and it scares him Explained this seems like a cycle and discussed measure we can do like optimize blood pressure and do a stress test He declined any blood pressure medications nor does he want to go the stress test in the hospital Discussed tips on how to assess if its pain or nerves, patient verbalized understanding Physical Exam Constitutional: pacing in room, anxious demeanor Respiratory: normal respiratory effort, lungs clear to auscultation Cardiovascular: RRR, no murmur, no edema Musculoskeletal: no cyanosis or clubbing, extremities motor strength 5/5 Results & Data Results & Data Vital Signs (Past 12 Hours) Vital Signs Temp Pulse Resp BP Pulse Ox O2 Del Method 07/17/24 07:47 36.5 C 73 18 160/81 H 94 Room Air Laboratory Results Short CBC 07/16/24 07/17/24 Range/Units 16:04 07:28 WBC 7.68 5.65 (4.8-10.8) K/ul Hgb 14.8 13.7 L (14.0-18.0) g/dl Hct 40.1 L 37.7 L (42.0-52.0) % Plt Count 184 159 (130-400) K/uL BMP 07/16/24 07/17/24 16:04 07:28 Sodium 129 L 134 L Potassium 3.8 3.9 Chloride 94 L 101 Carbon Dioxide 26 29 BUN 7 6 Creatinine 0.81 0.87 Glucose 107 H 97 Calcium 10.3 9.8 Liver Function 07/16/24 07/17/24 Range/Units 16:04 07:28 Total Bilirubin 0.8 0.7 (0.2-1.0) mg/dl AST 17 16 (13-39) U/L ALT 16 15 (7-52) U/L Alkaline Phosphatase 65 56 (34-104) U/L Albumin 4.4 4.0 (3.4-5.0) gm/dl Medications Administered Home Medications Medication Instructions Recorded Confirmed Last Taken albuterol sulfate 90 mcg/actuation 2 puff inhalation QID PRN 10/15/22 07/16/24 06/30/24 aerosol inhaler Shortness Of Breath fluticasone propionate 50 2 spray intranasal QAM 10/15/22 07/16/24 07/15/24 mcg/actuation nasal spray,suspension lorazepam 1 mg tablet 1 mg PO TID 10/15/22 07/16/24 07/15/24 dicyclomine 10 mg capsule 10 mg PO TID PRN abdominal pain 06/30/24 07/16/24 07/15/24 #20 caps metoclopramide HCl 5 mg tablet 5 mg PO Q8H PRN nausea and 06/30/24 07/16/24 Unknown vomiting #14 tabs azelastine 137 mcg (0.1 %) nasal 1 spray intranasal DAILY 07/09/24 07/16/24 07/15/24 spray prochlorperazine maleate 5 mg 5 mg PO DIRECTED PRN n/v 07/09/24 07/16/24 Unknown tablet hydrocodone 7.5 mg-acetaminophen 15 ml PO Q4H PRN Pain 07/16/24 07/16/24 Unknown 325 mg/15 mL oral solution mirtazapine 30 mg tablet 30 mg PO HS 07/16/24 07/16/24 07/15/24 pantoprazole 40 mg tablet,delayed 40 mg PO HS 07/16/24 07/16/24 07/15/24 release Active Medications Generic Name Dose Route Start Last Admin Trade Name Freq PRN Reason Stop Dose Admin Buspirone HCl 5 mg 07/16/24 21:20 07/17/24 07:27 Buspirone 5 Mg Tab PO 08/15/24 21:19 5 mg BID JANINE Administration Enoxaparin Sodium 40 mg 07/16/24 21:45 07/16/24 22:27 Enoxaparin Inj 40 Mg/0.4 Ml Syr SQ 08/15/24 21:44 Not Given HS JANINE Famotidine 20 mg 07/17/24 09:00 07/17/24 07:27 Famotidine 20 Mg Tab PO 08/16/24 08:59 20 mg DAILY JANINE Administration Lorazepam 1 mg 07/16/24 21:20 07/17/24 07:27 Lorazepam 1 Mg Tab PO 08/15/24 21:19 1 mg BID JANINE Administration Melatonin 3 mg 07/16/24 21:20 07/17/24 02:55 Melatonin 3 Mg Tab PO 08/15/24 21:19 3 mg HS PRN Administration Insomnia Mirtazapine 30 mg 07/16/24 22:00 07/17/24 01:42 EDT Mirtazapine Tab 15 Mg Tab PO 08/15/24 21:59 30 mg HS JANINE Administration Morphine Sulfate 2 mg 07/16/24 23:12 07/16/24 23:35 Morphine Sulfate 2 Mg/Ml Carp IV 07/30/24 23:11 2 mg Q3H PRN Administration Pain Polyethylene Glycol 17 gm 07/16/24 21:20 07/17/24 13:43 Polyethylene (Miralax) 17 Gm Pack PO 08/15/24 21:19 17 gm DAILY PRN Administration Constipation Sennosides 8.6 mg 07/17/24 09:00 07/17/24 07:40 Senna 8.6 Mg Tab PO 08/16/24 08:59 Not Given DAILY JANINE Simethicone 80 mg 07/16/24 18:33 07/16/24 22:03 Simethicone 80 Mg Chew PO 08/15/24 18:32 80 mg Q6H PRN Administration Flatulence Tamsulosin HCl 0.4 mg 07/17/24 09:00 07/17/24 07:41 Tamsulosin Hcl 0.4 Mg Cap PO 08/16/24 08:59 Not Given DAILY JANINE
--- NOTE | 2024-07-17 17:26 | Electrocardiogram Report ---
Test Reason : Blood Pressure : */* mmHG Vent. Rate : 75 BPM Atrial Rate : 75 BPM P-R Int : 160 ms QRS Dur : 88 ms QT Int : 406 ms P-R-T Axes : 98 87 78 degrees QTcB Int : 453 ms Sinus rhythm with occasional Premature ventricular complexes RSR' or QR pattern in V1 suggests right ventricular conduction delay Rightward axis Abnormal ECG When compared with ECG of 15-Jul-2024 18:28, No significant change was found Confirmed by Dominique Baker (Mirtha) on 07/17/2024 5:26:10 PM Referred By: REFERRED SELF Confirmed By: Dominique Baker
--- NOTE | 2024-07-17 17:33 | Electrocardiogram Report ---
Test Reason : Blood Pressure : */* mmHG Vent. Rate : 77 BPM Atrial Rate : 77 BPM P-R Int : 130 ms QRS Dur : 88 ms QT Int : 396 ms P-R-T Axes : 68 85 60 degrees QTcB Int : 448 ms Normal sinus rhythm Normal ECG When compared with ECG of 16-Jul-2024 16:02, (unconfirmed) Premature ventricular complexes are no longer Present Confirmed by Dominique Baker (Mirtha) on 07/17/2024 5:33:12 PM Referred By: REFERRED SELF Confirmed By: Dominique Baker
[2024-07-17 19:56] VITALS: TEMP 97.9
[2024-07-17] MEDS: ESCITALOPRAM OXALATE 10 MG TAB PO SCH (20:34)
[2024-07-17] MEDS: LACTULOSE SYRUP 30 GM/45 ML UDP PO STA (22:26)
[2024-07-17] MEDS: DOCUSATE SODIUM/SENNA 50/8.6MG TAB PO SCH (22:26)
[2024-07-18 07:11] VITALS: BP 159/90; RESP 16; O2SAT 96
--- NOTE | 2024-07-18 09:29 | Discharge Summary ---
Discharge Summary Date of Service July 18, 2024 Principal Dx & Hospital Course #1 = Principal Diagnosis (1) Atypical chest pain: (2) Generalized anxiety disorder: (3) MDD (major depressive disorder), recurrent episode, moderate: (4) Hypertension: (5) Squamous cell carcinoma of glottis: (6) Chronic obstructive pulmonary disease: Plan Patient presented to the emergency room with complaints of chest pain. The patient had been to the emergency room and hospital numerous times over the past few weeks with similar complaints. His extensive workup has been negative to date. He was referred for further evaluation. Patient was observed in the hospital. He was ruled out for acute coronary syndrome via EKG and enzymes. Patient was noted to be hypertensive. Cardiology consultation was obtained. Between hospital medicine cardiology patient was encouraged to start blood pressure medications and consider cardiac stress testing. Patient declined all medications and further testing here in the hospital. Patient was seen by psychiatry. Recommended starting some Lexapro which she tolerated. On the day of discharge his blood pressure was still slightly elevated but not critically. He did not have any more chest pain. He had no significant arrhythmias. No other acute hospital medical issues had presented themselves over his period of observation. He can be discharged home to outpatient follow-up with his PCP. Encouraged to discuss medical treatment for his high blood pressure with his PCP, he should consider outpatient stress testing and possibly referral to pain management. Patient does have glottic cancer and should continue following up with his specialist as previously arranged. 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 Of note patient has been seen for similar complaints multiple times in the last few weeks, with repeated negative troponins, CT chest, CT abdomen pelvis, EKG, echocardiogram. Today patient states that he had some non-exertional cp in his L chest without significant other symptoms. On my evaluation patient states that he thinks it could be related to either his dyspepsia or his MSK back pain. When asked about why he believes this connection exists, patient has difficulty describing his symptoms further. Patient and family do not feel comfortable returning home. Admission Exam Per Admitting Provider See H&P Discharge Exam Constitutional: Alert HEENT: Mucous membranes moist. Lungs: Clear to auscultation, decreased, no wheezes rales or rhonchi CV: S1-S2, regular Abdomen: Soft, nontender, nondistended Extremities: No significant edema Neuro: No focal deficits Psych: Cooperative, slightly anxious Updated Medication List Medication Instructions Recorded Confirmed Type albuterol sulfate 90 mcg/actuation 2 puff inhalation QID PRN 10/15/22 07/16/24 History aerosol inhaler Shortness Of Breath fluticasone propionate 50 2 spray intranasal QAM 10/15/22 07/16/24 History mcg/actuation nasal spray,suspension lorazepam 1 mg tablet 1 mg PO TID 10/15/22 07/16/24 History dicyclomine 10 mg capsule 10 mg PO TID PRN abdominal pain 06/30/24 07/16/24 Rx #20 caps metoclopramide HCl 5 mg tablet 5 mg PO Q8H PRN nausea and 06/30/24 07/16/24 Rx vomiting #14 tabs azelastine 137 mcg (0.1 %) nasal 1 spray intranasal DAILY 07/09/24 07/16/24 History spray prochlorperazine maleate 5 mg 5 mg PO DIRECTED PRN n/v 07/09/24 07/16/24 History tablet hydrocodone 7.5 mg-acetaminophen 15 ml PO Q4H PRN Pain 07/16/24 07/16/24 History 325 mg/15 mL oral solution pantoprazole 40 mg tablet,delayed 40 mg PO HS 07/16/24 07/16/24 History release escitalopram oxalate 10 mg tablet 5 mg (1/2 x 10 mg) PO QPM 30 days 07/18/24 Rx #15 tabs mirtazapine 30 mg tablet 30 mg PO HS 30 days #30 tabs 07/18/24 Rx sennosides 8.6 mg-docusate sodium 1 tab PO QAM 30 days #30 tabs 07/18/24 Rx 50 mg tablet (Senokot-S) tamsulosin 0.4 mg capsule 0.4 mg PO DAILY 30 days #30 caps 07/18/24 Rx Hospital Stay Data Consultations 07/16/24 17:55 ED Decision to Admit Stat 07/16/24 18:28 Consult Cardiology Stat Consult Psychiatry Stat Diagnostic Imagining Performed 07/16/24 23:22 CT angio chest dissec wo/w con Stat Reviewed imaging, laboratory and diagnostic studies. Pertinent findings as below. Hemoglobin 13.7 Sodium 134 rest of electrolytes are stable Pending Results Patient Have Any Pending Studies at Discharge: No Discharge Instructions Given to Patient (Per Discharging Provider) Discussed with your primary care provider treatment for your high blood pressure and possible outpatient cardiac stress testing Discussed with your PCP referral to pain management for your chronic pain syndrome Total Time Total Time Spent Total Time Spent (In Minutes): 26
[2024-07-18 10:13] VITALS: PULSE 66
--- OUTSIDE RECORDS SUMMARY | 2024-07-18 11:54 | External Medical Summary | Summary of Care ---
Author Name Unknown Organization [facility] Address [address] [place] [address] Phone [phone] Care Team Providers Care Stencil Typist Name Role Phone David España MD Primary Care P rovider Reason for Visit * Reason Onset Date Comments Medication Question 07/14/2024 Encounter Details Date Type Department Care Team ([facility] Contact Info) Description 07/14/2024 Telephone Family Practice [address] [phone] David España MD [address] [place] [id number] Medication Question Allergies Active Allergy Reactions Criticality Noted Date Comments Bee Venom Edema Other 08/01/2003 Local large swelling; no anaphylaxis history Hydromorphone Hcl Other (Please comment) 2011 Hyperactive Oxycodone Psych complications 06/02/2024 Delusions/hallucinati ons Penicillins Hives,Itching 06/08/2001 documented as of this encounter (statuses as of 07/18/2024) Medications Medication Sig Dispensed Refills Start Date End Date Status Acetaminophen 500 MG Oral Tablet (TYLENOL) Take 1 Tablet by mouth every 6 hours as needed. Active Hydrocortisone (Perianal) 2.5 % External CreamIndications:Hem orrhoids, external without complications Administer into the rectum 2 times a day. 30 g 1 05/06/2023 Active Saline Nasal Plato 0.65 % Nasal Solution (Foard) Administer 1 Plato into nostril as needed for Congestion. Active Azelastine HCl 0.1 % Nasal Solution (Astelin)Indications :Seasonal allergic rhinitis, unspecified trigger Administer 1 Plato into nostril in the morning and 1 Plato before bedtime. 90 mL 3 03/09/2024 Active Ventolin HFA 108 (90 Base) MCG/ACT Inhalation Aerosol SolutionIndications: COPD, group A, by GOLD 2017 classification ([facility]) Inhale 2 Puffs by mouth every 4 hours as needed for Shortness of Breath, Wheezing or Cough. 18 g 5 03/25/2024 Active Additional Information Patient not taking.Reported on 06/28/2024 HYDROcodone-Acetamin ophen 7.5-325 MG/15ML Oral Solution (Hycet)Indications:S quamous cell carcinoma of glottis ([facility]),Cancer related pain Take 15 mL by mouth [...] anxiety,Recurrent major depressive disorder, in full remission ([facility]) Take 1 Tablet by mouth at bedtime. [...] as of this encounter (statuses as of 07/18/2024) Active Problems Problem Noted Date Diagnosed Date [...] as of this encounter (statuses as of 07/18/2024) Resolved Problems Problem Noted Date Diagnosed Date Resolved Date Aspirin contraindicated 04/26/201307/16 Depression with anxiety 03/19/201206/14 Loss of weight 08/15/2011 05/03/2013 Irritable bowel syndrome 03/12/2011 ABNORMAL LUNG SCAN 11/01/2010 3 Tobacco use disorder 04/03/2008 013 documented as of this encounter (statuses as of 07/18/2024) Immunizations Name Administration Dates Next Due COVID-19 mRNA, LNP-s, No Pre serve, 2-Dose Series ([employer]) 01/28/2021,01/07/2021,12/13/2020 Pneumococcal Conjugate Vacc, 13 Valent (Prevnar) [...] encounter Miscellaneous Notes * Telephone Encounter - Mayra Tavarez CPhT - 07/18/2024 8:24 AM EST [facility] calling to check on status of lamotrigine question. Informed of MD message above Thank you, Mayra Tavarez CPhT II [facility] 07/18/2024, 8:24 AM * Telephone Encounter - David España MD - 07/15/2024 1:57 PM EDT Noted. I did request a fast titration up. Patient is aware of potential side effects. His is also monitoring him. Thank you * Telephone Encounter - Beverly Cedeno PHARM Tech - 07/14/2024 5:40 PM EDT E [id number] [id number] [facility] calling regarding sig for lamoTRIgine 25 MG Oral Tablet (LaMICtal), system is flagging rx stating sig titrates up med fast, wants to make sure provider is aware, please advise. Thank you, Beverly Cedeno CPhT [facility] 07/14/2024,5:41 PM documented in this encounter Plan of Treatment Upcoming Encounters Date Type Department Care Team (Late st Contact Info) Description 07/18/2024 11:45 AM EST Scheduled Telephone Care Coordination and Integration [address] [place] [address] Victoria Contreras, [facility] [address] [place] [address] 07/20/2024 2:00 PM EST Office Visit Radiation Oncology, [facility] [address] [place] [address] Ron Evangelista MD [address] [facility] [place] [phone] 08/10/2024 11:50 AM EST Office Visit [facility] [address] [place] [phone] David España MD [address] [place] [address] 08/15/2024 8:30 AM EST Hospital Encounter ENDO [facility], Endoscopy Room [facility] [address] [place] [phone] Danette Clifton DO [address] [place] [id number] 08/15/2024 8:30 AM EST - 08/15/2024 9:00 AM EST Surgery ENDO [facility], Endoscopy Room [facility] [address] [place] [phone] Danette Clifton DO [address] [place] [id number] COLONOSCOPY FLEXIBLE PROXIMAL DIAGNOSTIC 08/23/2024 1:45 PM EST Office Visit Urology, [facility] [address] [place] [phone] Alejo Hodge MD [address] [place] [address] Scheduled Procedures Name Priority Associated Diagnoses Date/Ti me COLONOSCOPY FLEXIBLE PROXIMAL DIAGNOSTIC Recall Special screening for malignant neoplasms, colon 08/15/2024 8:30 AM EST Health Maintenance Due Date Last Done Comments Zoster Vaccines (1 of 2) 1995 Adult Wellness Visit 2011 Colonoscopy 03/05/2012 03/05/2011 COVID-19 Vaccine ( season) 2024 01/28/2021, 01/07/2021, 12/13/2020 Albumin/Creatinine Ratio 08/14/2024 08/14/2023 CKD PHOS USE SMARTSET 66588 08/14/2024 08/14/2023 GFR 09/10/2024 03/11/2024, 01/13, 08/14/2023, Additional history exists CKD HGB USE SMARTSET 66838 03/11/202503/11, 03/11/2024, 08/14/2023, Additional history exists O2 [...] Discussed due to patient's condition Care Teams Stencil Typist Relationship Specialty Start Date End Date David España MD [address] [place] [address] PCP - General Family Medicine 01/21/21 documented as of this encounter
== END 2024-07-18 11:24 | disposition home or self-care (01) ==
LOC: ED 15:55 → 3E 15:55 → SUATTDRO 18:15 → 3E 20:22

== ENCOUNTER 2024-07-21 15:05 | Inpatient (IN) ==
[2024-07-21 15:47] LABS: Basophils # (auto) 0.05 K/uL (0.00-0.20); Basophils % (auto) 0.9 %; Eosinophils # (auto) 0.13 K/uL (0.00-0.50); Eosinophils % (auto) 2.2 %; Hematocrit (blood only) 37.8 % (42.0-52.0); Hemoglobin 13.9 g/dl (14.0-18.0); Immature Granulocytes # (auto) 0.02 K/uL (0.01-0.20); Immature Granulocytes % (auto) 0.3 %; Lymphocytes # (auto) 0.51 K/uL (1.20-3.40); Lymphocytes % (auto) 8.7 %; Mean Corpuscular Hemoglobin 30.5 pg (25.0-34.0); Mean Corpuscular Hgb Conc 36.8 g/dL (32.0-36.0); Mean Corpuscular Volume 83.1 fL (80.0-100.0); Mean Platelet Volume 8.5 fL (9.4-12.4); Monocytes # (auto) 0.53 K/uL (0.11-0.59); Monocytes % (auto) 9.1 %; Neutrophils # (auto) 4.61 K/uL (1.40-6.50); Neutrophils % (auto) 78.8 %; Platelet Count 171 K/uL (130-400); RDW Coefficient of Variation 12.7 % (11.5-14.5); RDW Standard Deviation 38.3 fL (36.4-46.3); Red Blood Count 4.55 M/uL (4.70-6.10); White Blood Count 5.85 K/ul (4.8-10.8)
[2024-07-21 16:06] LABS: Albumin Globulin Ratio 1.5 (0.9-2); Albumin Level 4.1 gm/dl (3.4-5.0); BUN Creatinine Ratio 9.1 (10-20); Calcium 9.9 mg/dl (8.6-10.3); Creatinine Clr Calc Pharmacy 64.7 ml/min; Globulin 2.8 gm/dl (2.5-4.0); Potassium 3.8 mmol/L (3.5-5.1); Total Protein 6.9 gm/dl (6.0-8.3)
--- NOTE | 2024-07-21 16:10 | XRay Report ---
EXAM: Radiograph of the Chest 1 View INDICATION: Left chest pain. TECHNIQUE: Frontal view of the chest. COMPARISON: 07/16/2024 FINDINGS: Lungs and pleural spaces: No consolidation or pulmonary edema. No pleural effusion or pneumothorax. Heart: Shape and configuration within normal limits allowing for technique. Mediastinum: Normal contour. Bones/joints: Stable convex left spinal bowing and degenerative change right shoulder without other osseous abnormality. Soft tissues: No abnormality noted. No radiopaque foreign body noted. Upper abdomen: No abnormality noted. IMPRESSION: No acute cardiopulmonary disease. ACT 112: Negative or not required by law. Electronically signed by Tianna Edwards 07-21-2024 4:10 PM
[2024-07-21 16:12] LABS: Troponin I High Sensitivity 5.4 pg/ml (0-20)
[2024-07-21 16:29] LABS: INR 1.1 (0.9-1.1); Partial Thromboplastin Time 28 Seconds (21-31); Prothrombin Time 11.4 Seconds (9.0-12.0)
--- NOTE | 2024-07-21 17:03 | Emergency Department Note ---
Impression & Plan MDD (major depressive disorder), recurrent episode, moderate, Chest pain, Generalized anxiety disorder ED Provider Note Name: MARGIE JONES Jr Age: 78 Sex: Male Arrives Via: Walk-In Informant: Patient, ED Provider: Ben Morin MD Chief Complaint: Chest pain Impression: As per impressions above Medical Decision Makin-year-old gentleman arrives for evaluation of chest pain. This is his seventh visit to the ER in the last few weeks for similar complaints. Patient is clearly quite depressed on arrival and discussing it with it sounds like he is somewhat decompensating at home. Had been admitted here just a few days ago with diagnosis of atypical chest pain and depression/anxiety started on Lexapro. Stress test not done at that point given his unwillingness to treat blood pressure. Patient has continued worsening no since getting home and arrives with stating continued chest pains back pains anxiety, not caring for himself, not getting out of bed bed/couch. Patient appears a bit dehydrated appearing with some mild hyponatremia. Initial EKG unremarkable and troponin is normal. There is no clear evidence of ACS. This does seem highly unlikely to be cardiac in nature though agree getting stress test with be optimal for further evaluation. Further review with patient and it does appear that he had an episode of severe depression lasting many months little over a decade ago. I suspect that this is recurrence of major depression acute phase however I do not feel that hospitalization for psychiatric condition without further ruling out cardiac and hyponatremia issues would be safe and thus hospitalist consulted for further management and workup. Of note patient has had extensive workup already including multiple labs, chest x-rays, EKGs, and CT imaging of the chest. There is been no evidence of PE or dissection. I feel that repeating CT angiography of the chest would be of little benefit given he is not hypotensive, hypoxic nor tachycardic nor does he have any respiratory complaints. Triage/Nursing Notes reviewed by Me External Chart Review by me: Reviewed the discharge summary from July 18, 2024 discussing the recent workup and evaluation for chest pain while in the hospital. Differential:Cardiac ischemia, aortic dissection, pulmonary embolism, pneumothorax, pneumonia, pericarditis, myocarditis, esophageal rupture, GERD, cholecystitis, pancreatitis, musculoskeletal, as well as other pathologies. Vital Signs: reviewed and remarkable for mild hypertension on arrival Interventions: Normal saline bolus Labs:ED labs Reviewed by me and remarkable for hyponatremia Imagin view chest x-ray no infiltrate nor effusion appreciated. As per my interpretation. EKG:As per my interpretation. Indication chest pain. Normal sinus rhythm at 66 bpm QTc of 434. There is no ectopy nor ischemia. Compared to July 16, 2024 EKG there is no significant change. Cardiac/Tele Monitoring: Cardiac Monitoring: An Order was placed for continuous cardiac monitoring. The monitor shows a rate of 60 with a normal sinus rhythm. Consults:Discussed with hospitalist who will bring in for further management. Plan: Disposition:Hospitalization. Condition: Good History of Present Illness: 78-year-old gentleman arrives for evaluation of chest pain. Patient with ongoing chest pain for the last 2 weeks. Associated with severe depression and anxiety and fatigue. He has not been getting out of bed. Has not been eating well he has not been taking care of himself. Patient has been seen in the ER many times for this already with continued symptoms. Multiple workups including cardiac rule outs, CTs of the chest amongst others have been unremarkable. He is been seen by cardiology, psychiatry and hospitalist. He was hospitalized on July 16 and discharged on the . There was concern that he should have a stress test however patient has been declining any medications other than the Lexapro he was prescribed. Does not feel the Lexapro has been helping. He is having thoughts of not being alive however has no thoughts of killing himself. His removed all weapons from the house due to her concerns. Patient does have a history of severe depression which lasted almost a year and a half about a decade ago. Past Medical History:See Below Home Medications:See Below Allergies:bees, pnc, hydromorphone Vitals:Blood Pressure: 161/83, Pulse 62, RR 18, T 36.6C, O2 97% on RA Physical Exam: GENERAL: Patient is sad/depressed appearing and in mild distress. Dehydrated appearing RESPIRATORY: No dyspnea. Clear to auscultation and equal bilaterally. CARDIOVASCULAR: Regular rate and rhythm.No murmur appreciated. GASTROINTESTINAL: Abdomen soft, non-tender, no peritonitis. BACK: No midline tenderness, no CVA tenderness EXTREMITIES: Normal motion all extremities, no cyanosis, no edema. NEUROLOGIC: Alert and oriented. No focal neurologic deficits appreciated SKIN: No rash, no jaundice, no diaphoresis. PSYCH: Patient only mildly anxious more on the sad/depressed. Denies suicidal homicidal ideation. Denies hallucinations. GCS: 15 ED Course: Times/Reassessments: Patient and are agreeable to plan for hospitalization. Ben Morin MD Past Med/Surg History Problem List (Updated 07/22/24 @ 10:49 by Ben Morin MD) Pseudodementia Anxiety about health Generalized anxiety disorder (Acute) MDD (major depressive disorder), recurrent episode, moderate (Acute) Hypertension Anxiety (Acute) Atypical chest pain (Acute) Chest pain (Acute) Abdominal bloating Squamous cell carcinoma of glottis Chest pain (Acute) Acute hyponatremia (Acute) Dry mouth (Acute) Nausea (Acute) Medical History Esophageal cancer S/P radiation therapy Acute hyponatremia Diverticulitis Lung nodules monitoring-once every 6 months-1 year Chronic obstructive pulmonary disease inh prn History of COVID-19 10/2020, test in [place], not hosp; fatigue, body aches>resolved in 1 week Anxiety Surgical History History of right cataract surgery Hx laparoscopic cholecystectomy Hx of colonoscopy Hx of sinus surgery Hx of tonsillectomy Family History Other Diabetes Social History Smoking Status: Former smoker Tobacco Type: Cigarettes Smoking End Date: "years ago"; Second Hand Exposure: No; Do You Dip or Chew Tobacco: No; Hx Alcohol Use: No Hx Substance Use: No Preferred Language: Albanian Communication Ability: Effective Plan Nurse Required: No Beliefs That Will Affect Care: None Current Living Situation: Spouse Feels Safe at Home: Yes Safety Concerns: Feels Safe At This Time Assistive Devices: Denture - Upper and Glasses Allergies Allergies Allergy/AdvReac Type Severity Reaction Status Date / Time bee venom protein (honey bee) Allergy Severe SWELLING Verified 07/16/24 18:34 Penicillins Allergy Intermediate RASH Verified 07/16/24 18:34 hydromorphone AdvReac Mild VOMITING Verified 07/16/24 18:34 Home Meds Home Medications Medication Instructions Recorded Confirmed albuterol sulfate 90 mcg/actuation 2 puff inhalation QID PRN 10/15/22 07/21/24 aerosol inhaler Shortness Of Breath fluticasone propionate 50 2 spray intranasal QAM 10/15/22 07/21/24 mcg/actuation nasal spray,suspension lorazepam 1 mg tablet 1 mg PO TID 10/15/22 07/21/24 azelastine 137 mcg (0.1 %) nasal 1 spray intranasal DAILY 07/09/24 07/21/24 spray hydrocodone 7.5 mg-acetaminophen 15 ml PO Q4H PRN Pain 07/16/24 07/21/24 325 mg/15 mL oral solution pantoprazole 40 mg tablet,delayed 40 mg PO HS 07/16/24 07/21/24 release famotidine 20 mg tablet 20 mg PO HS PRN Heartburn 07/21/24 07/21/24 prochlorperazine maleate 5 mg 5 mg PO Q6H PRN Nausea And Vomiting 07/21/24 07/21/24 tablet Previous Rx's Medication Instructions Recorded dicyclomine 10 mg capsule 10 mg PO TID PRN abdominal pain 06/30/24 #20 caps escitalopram oxalate 10 mg tablet 5 mg (1/2 x 10 mg) PO QPM 30 days 07/18/24 #15 tabs mirtazapine 30 mg tablet 30 mg PO HS 30 days #30 tabs 07/18/24 sennosides 8.6 mg-docusate sodium 1 tab PO QAM 30 days #30 tabs 07/18/24 50 mg tablet (Senokot-S) tamsulosin 0.4 mg capsule 0.4 mg PO DAILY 30 days #30 caps 07/18/24 Results & Data (ED) Vital Signs Vital Signs - 24 hr 07/21/24 15:10 07/21/24 16:58 Temperature 36.6 C Temperature Source Skin Pulse Rate 69 Pulse Rate [Finger] 62 Respiratory Rate 18 18 Blood Pressure 155/72 H Blood Pressure [Right Arm] 161/83 H Blood Pressure Mean 99 Blood Pressure Mean [Right Arm] 109 Pulse Oximetry 97 97 Oxygen Delivery Method Room Air Room Air Sepsis Recent Fever Within 48 Hours No Sepsis New/Unexplained Change in Mental Status No Sepsis Action Taken by Nursing No Action Required Laboratory Data 07/22/24 05:41 07/22/24 05:41 Lab Results 07/21/24 Range/Units 15:25 WBC 5.85 (4.8-10.8) K/ul RBC 4.55 L (4.70-6.10) M/uL Hgb 13.9 L (14.0-18.0) g/dl Hct 37.8 L (42.0-52.0) % MCV 83.1 (80.0-100.0) fL MCH 30.5 (25.0-34.0) pg MCHC 36.8 H (32.0-36.0) g/dL RDW Std Deviation 38.3 (36.4-46.3) fL RDW Coeff of Zohra 12.7 (11.5-14.5) % Plt Count 171 (130-400) K/uL MPV 8.5 L (9.4-12.4) fL Immature Gran % (Auto) 0.3 % Neut % (Auto) 78.8 % Lymph % (Auto) 8.7 % [place] % (Auto) 9.1 % Eos % (Auto) 2.2 % Baso % (Auto) 0.9 % Neut # (Auto) 4.61 (1.40-6.50) K/uL Lymph # (Auto) 0.51 L (1.20-3.40) K/uL [place] # (Auto) 0.53 (0.11-0.59) K/uL Eos # (Auto) 0.13 (0.00-0.50) K/uL Baso # (Auto) 0.05 (0.00-0.20) K/uL Immature Gran # (Auto) 0.02 (0.01-0.20) K/uL PT 11.4 (9.0-12.0) Seconds INR 1.1 (0.9-1.1) APTT 28 (21-31) Seconds PTT Ratio 1.0 Sodium 129 L (136-145) mmol/L Potassium 3.8 (3.5-5.1) mmol/L Chloride 96 L (98-107) mmol/L Carbon Dioxide 25 (21-32) mmol/L Anion Gap 8 (3-11) BUN 8 (6-23) mg/dl Creatinine 0.88 (0.6-1.4) mg/dl Est Cr Clr Drug Dosing 64.7 ml/min eGFR 88.01 BUN/Creatinine Ratio 9.1 L (10-20) Glucose 93 (70-99(Fasting)) mg/dl Osmolality 271 L (280-300) mOsm/kg Calcium 9.9 (8.6-10.3) mg/dl Total Bilirubin 1.0 (0.2-1.0) mg/dl AST 19 (13-39) U/L ALT 22 (7-52) U/L Alkaline Phosphatase 59 (34-104) U/L Troponin I High Sens 5.4 (0-20) pg/ml Total Protein 6.9 (6.0-8.3) gm/dl Albumin 4.1 (3.4-5.0) gm/dl Globulin 2.8 (2.5-4.0) gm/dl Albumin/Globulin Ratio 1.5 (0.9-2) Administered Medications Hydrocodone Bitart/Acetaminophen (Hydrocodone/Apap 7.5/325mg/15ml Elix 15 Ml/Cup) 15 ml PO Q4H PRN PRN Reason: Severe Pain Stop: 08/04/24 19:13 Last Admin: 07/21/24 20:27 Dose: 15 ml Documented By: JOSE Escitalopram Oxalate (Escitalopram Oxalate 10 Mg Tab) [facility] Stop: 08/21/24 08:59 Last Admin: 07/22/24 09:01 Dose: 10 mg Documented By: ADAM Fluticasone Propionate (Fluticasone Propionate Na Spr 16 Gm Btl) 2 sprays NA QAM [facility] Stop: 08/21/24 08:59 Last Admin: 07/22/24 09:00 Dose: 2 sprays Documented By: ADAM Heparin Sodium (Porcine) (Heparin Sod 5,000 Unit/0.5 Ml Vial) 5,000 units SQ Q8 [facility] Stop: 08/20/24 21:59 Last Admin: 07/22/24 06:14 Dose: 5,000 units Documented By: Admin: 07/21/24 21:53 Dose: 5,000 units Documented By: RALF Lorazepam (Lorazepam 1 Mg Tab) 1 mg PO TID [facility] Stop: 08/20/24 20:59 Last Admin: 07/22/24 09:00 Dose: 1 mg Documented By: Admin: 07/21/24 21:52 Dose: 1 mg Documented By: RALF Losartan Potassium (Losartan Potassium 25 Mg Tab) 25 mg PO QAM [facility] Stop: 08/20/24 19:03 Last Admin: 07/22/24 09:00 Dose: 25 mg Documented By: Admin: 07/21/24 19:50 Dose: 25 mg Documented By: BMS Mirtazapine (Mirtazapine Tab 15 Mg Tab) 30 mg PO HS [facility] Stop: 08/20/24 20:59 Last Admin: 07/21/24 19:50 Dose: 30 mg Documented By: BMS Pantoprazole Sodium (Pantoprazole 40 Mg Tab) 40 mg PO HS [facility] Stop: 08/20/24 20:59 Last Admin: 07/21/24 19:51 Dose: 40 mg Documented By: BMS Senna/Docusate Sodium (Docusate Sodium/Senna 50/8.6mg Tab) 1 tab PO QAM [facility] Stop: 08/21/24 08:59 Last Admin: 07/22/24 08:59 Dose: 1 tab Documented By: ADAM Tamsulosin HCl (Tamsulosin Hcl 0.4 Mg Cap) 0.4 mg PO DAILY [facility] Stop: 08/21/24 08:59 Last Admin: 07/22/24 09:03 Dose: Not Given Documented By: TMP Discontinued Medications Sodium Chloride (Nss) 500 mls @ 999 mls/hr IV .Q31M ONE Stop: 07/21/24 17:29 Last Infusion: 07/21/24 18:01 Dose: Infused Documented By: Admin: 07/21/24 17:13 Dose: 999 mls/hr Documented By: NICHO Acetaminophen (Ofirmev) 1,000 mg in 100 mls @ 400 mls/hr IV NOW STA Stop: 07/22/24 04:06 Last Infusion: 07/22/24 04:25 Dose: Infused Documented By: Admin: 07/22/24 04:05 Dose: 400 mls/hr Documented By: JOSE Imaging Data Radiologist's Impression: Chest X-Ray 07/21/24 15:29 EXAM: Radiograph of the Chest 1 View INDICATION: Left chest pain. TECHNIQUE: Frontal view of the chest. COMPARISON: 07/16/2024 FINDINGS: Lungs and pleural spaces: No consolidation or pulmonary edema. No pleural effusion or pneumothorax. Heart: Shape and configuration within normal limits allowing for technique. Mediastinum: Normal contour. Bones/joints: Stable convex left spinal bowing and degenerative change right shoulder without other osseous abnormality. Soft tissues: No abnormality noted. No radiopaque foreign body noted. Upper abdomen: No abnormality noted. IMPRESSION: No acute cardiopulmonary disease. ACT 112: Negative or not required by law. Electronically signed by Tianna Edwards 07-21-2024 4:10 PM Discharge Plan Visit Data Chief Complaint: Chest Pain Stated Complaint: PAIN IN CHEST, LEFT SHOULDER AND BACK ED Provider: Ben Morin Discharge Problem: MDD (major depressive disorder), recurrent episode, moderate, Chest pain, Generalized anxiety disorder Patient Disposition: Admitted As Inpatient Discharge Instructions Interventions: ED Discharge Assessment Last Done: 07/21/24 18:35 Discharge Problem: Chest pain Qualifiers: Chest pain type: unspecified Qualified Code(s): R07.9 - Chest pain, unspecified
[2024-07-21] MEDS: SODIUM CHLORIDE 0.9% 500 ML IV ONE (17:13)
--- NOTE | 2024-07-21 17:16 | History & Physical Report ---
Date of Service July 21, 2024 Assessment & Plan (1) Atypical chest pain: (2) Acute hyponatremia: (3) Squamous cell carcinoma of glottis: (4) Anxiety about health: (5) Generalized anxiety disorder: (6) MDD (major depressive disorder), recurrent episode, moderate: (7) Hypertension: Plan This is a 78yo M with a PMH of atypical chest pain, JOSE, MDD, HTN, squamous cell carcinoma of glottis, COPD and other medical problems listed below who presents with atypical chest pain. Atypical chest pain with recent cardiac work up Known DJD, cervical spine pain Recent multiple admissions for similar chest/back pain - trop negative, EKG without ischemic changes, CTA without sign of active dissection Recommended for antihypertensives last admission as well as cardiac stress test, patient declined Returns with constant chest and back discomfort similar to previous Trop negative thus far, EKG without changes from previous, CXR with no acute cardiopulmonary changes Will obtain thoracic/lumbar spine XR based on point tenderness Trial of losartan 25mg daily for BP control PRN ntg for CP/BP control If no improvement to pain, consider OP referral for Pain management and candidacy for [facility] Unintended weight loss 10 kg wt loss over last year per chart review in setting of cancer tx, now with lack of appetite 2/2 depression Consult group cio and speech given weight loss, h/o cancer of glottis Full liquid diet for now Hyponatremia Na 129 today, has been 129-133 over past 2 months during admissions Suspect SIADH given history Given 500ml NSS in ED Serum osm 271, awaiting urine studies 1800ml fluid restriction Repeat BMP in AM Dyspepsia/GERD Continue Protonix, Pepcid Generalized anxiety disorder MDD In setting of recent completion of cancer treatment - anhedonia, decreased appetite, worsening chronic pain Seen by psych last admission - concern for pseudodementia given poor effort during MOCA Increased Lexapro to 10mg daily, continue home ativan and mirtazapine Routine psych given worsening sx at home prompting to remove weapons, bring patient in. Denies SI now History of SCC glottis/larynx w/recent radiation Full liquid diet COPD Stable. Continue home albuterol inh DVT Ppx: SQ heparin Code status: FULL PCP: Mina Dispo: admitted med tele Patient seen in collaboration with Dr. Easton. Please see addendum. I spent a total of 75 minutes coordinating, documenting, and providing care for this patient excluding time spent in the performance of separately billed services. History of Present Illness Chief Complaint: recurrent CP Primary Care Provider: David Enriquez MD This is a 78yo M with a PMH of atypical chest pain, JOSE, MDD, HTN, squamous cell carcinoma of glottis, COPD and other medical problems listed below who presents with chest pain. Describes pain as constant and radiating to his mid-back. Pain woke him up this morning and has not changed in character or severity. No SOB, nausea or vomiting. Has been less mobile than previously. Completed XRT for SCC of glottis a few weeks ago. Was recently admitted from 07/16-07/18 with similar chest pain and has undergone workup. Cardiology was consulted and recommended starting BP medications and considering cardiac stress testing. Patient declined all medications and further testing at that time and was discharged home on 07/18. States his BP is lower at home when he checks it. Was also seen by psychiatry who recommended starting Lexapro as well as ativan. Continues to feel anxious but doesn't have an understanding of why. is concerned enough that she removed weapons in the home and brought him in for further evaluation. No fever, chills, headache, lightheadedness, SOB, N/V, abd pain, dysuria, diarrhea or constipation. Allergies Allergy/AdvReac Type Severity Reaction Status Date / Time bee venom protein (honey bee) Allergy Severe SWELLING Verified 07/16/24 18:34 Penicillins Allergy Intermediate RASH Verified 07/16/24 18:34 hydromorphone AdvReac Mild VOMITING Verified 07/16/24 18:34 Home Medications Medication Instructions Recorded Confirmed Type albuterol sulfate 90 mcg/actuation 2 puff inhalation QID PRN 10/15/22 07/21/24 History aerosol inhaler Shortness Of Breath fluticasone propionate 50 2 spray intranasal QAM 10/15/22 07/21/24 History mcg/actuation nasal spray,suspension lorazepam 1 mg tablet 1 mg PO TID 10/15/22 07/21/24 History dicyclomine 10 mg capsule 10 mg PO TID PRN abdominal pain 06/30/24 07/21/24 Rx #20 caps azelastine 137 mcg (0.1 %) nasal 1 spray intranasal DAILY 07/09/24 07/21/24 H istory spray hydrocodone 7.5 mg-acetaminophen 15 ml PO Q4H PRN Pain 07/16/24 07/21/24 History 325 mg/15 mL oral solution pantoprazole 40 mg tablet,delayed 40 mg PO HS 07/16/24 07/21/24 History release escitalopram oxalate 10 mg tablet 5 mg (1/2 x 10 mg) PO QPM 30 days 07/18/24 07/21/24 Rx #15 tabs mirtazapine 30 mg tablet 30 mg PO HS 30 days #30 tabs 07/18/24 07/21/24 Rx sennosides 8.6 mg-docusate sodium 1 tab PO QAM 30 days #30 tabs 07/18/24 07/21/24 Rx 50 mg tablet (Senokot-S) tamsulosin 0.4 mg capsule 0.4 mg PO DAILY 30 days #30 caps 07/18/24 07/21/24 Rx famotidine 20 mg tablet 20 mg PO HS PRN Heartburn 07/21/24 07/21/24 History prochlorperazine maleate 5 mg 5 mg PO Q6H PRN Nausea And Vomiting 07/21/24 07/21/24 History tablet Past Med/Surg History Problem List Pseudodementia Anxiety about health Generalized anxiety disorder MDD (major depressive disorder), recurrent episode, moderate Hypertension Anxiety (Acute) Atypical chest pain (Acute) Chest pain (Acute) Abdominal bloating Squamous cell carcinoma of glottis Chest pain (Acute) Acute hyponatremia (Acute) Dry mouth (Acute) Nausea (Acute) Medical History Esophageal cancer S/P radiation therapy Acute hyponatremia Diverticulitis Lung nodules monitoring-once every 6 months-1 year Chronic obstructive pulmonary disease inh prn History of COVID-19 10/2020, test in [place], not hosp; fatigue, body aches>resolved in 1 week Anxiety Surgical History History of right cataract surgery Hx laparoscopic cholecystectomy Hx of colonoscopy Hx of sinus surgery Hx of tonsillectomy Family History Other Diabetes Social History Smoking Status: Never smoker Second Hand Exposure: No; Do You Dip or Chew Tobacco: No; Hx Alcohol Use: No Hx Substance Use: No Preferred Language: Lao Communication Ability: Effective Hand Worker Required: No Beliefs That Will Affect Care: None Current Living Situation: Family Feels Safe at Home: Yes Assistive Devices: Denture - Upper and Glasses Review of Systems Review of Systems: At least ten systems reviewed and negative except as noted in the HPI. Physical Exam Physical Exam: Please see Dr. Easton's addendum for physical exam. Results & Data Results & Data Vital Signs (Past 12 Hours) Vital Signs Temp Pulse Pulse Resp BP BP Pulse Ox 07/21/24 16:58 62 18 161/83 H 97 07/21/24 15:10 36.6 C 69 18 155/72 H 97 O2 Del Method 07/21/24 16:58 Room Air 07/21/24 15:10 Room Air Laboratory Results Short CBC 07/21/24 Range/Units 15:25 WBC 5.85 (4.8-10.8) K/ul Hgb 13.9 L (14.0-18.0) g/dl Hct 37.8 L (42.0-52.0) % Plt Count 171 (130-400) K/uL BMP 07/21/24 15:25 Sodium 129 L Potassium 3.8 Chloride 96 L Carbon Dioxide 25 BUN 8 Creatinine 0.88 Glucose 93 Calcium 9.9 Liver Function 07/21/24 Range/Units 15:25 Total Bilirubin 1.0 (0.2-1.0) mg/dl AST 19 (13-39) U/L ALT 22 (7-52) U/L Alkaline Phosphatase 59 (34-104) U/L Albumin 4.1 (3.4-5.0) gm/dl Diagnostic Findings Chest X-Ray 07/21/24 15:29 EXAM: Radiograph of the Chest 1 View INDICATION: Left chest pain. TECHNIQUE: Frontal view of the chest. COMPARISON: 07/16/2024 FINDINGS: Lungs and pleural spaces: No consolidation or pulmonary edema. No pleural effusion or pneumothorax. Heart: Shape and configuration within normal limits allowing for technique. Mediastinum: Normal contour. Bones/joints: Stable convex left spinal bowing and degenerative change right shoulder without other osseous abnormality. Soft tissues: No abnormality noted. No radiopaque foreign body noted. Upper abdomen: No abnormality noted. IMPRESSION: No acute cardiopulmonary disease. ACT 112: Negative or not required by law. Electronically signed by Jerry Tianna 07-21-2024 4:10 PM Supervising Physician Co-Signing Physician Notes Patient is a 78-year-old male with history of squamous cell carcinoma of glottis, COPD and other medical problems presents with history of intermittent chest, back pain. Patient was hospitalized 3 days ago with similar symptoms and refused to be started on antihypertensives, stress test. He was evaluated by psychiatrist at the time and was started on Lexapro, mirtazapine and tamsulosin. Patient states having left-sided chest pain, nonradiating, sharp to dull in quality, no aggravating, relieving factors. Also states having back pain, thoracic region denies any recent falls. Blood pressure elevated while in ED. He denies any dyspnea, vomiting, abdominal pain,. States having intermittent dizziness. Currently denies any suicidal thoughts. He states that the medications had not changed his mood. Poor oral intake lately. Please review HPI for complete details of presentation. I personally reviewed blood work and imaging studies. Noted chronic hyponatremia with sodium 129, chloride 96. Initial troponin negative. EKG showed no signs of acute ischemia. Physical Exam: Vitals signs as noted above General Appearance:Moderately built and nourished, no apparent distress Head: normocephalic, Atraumatic Eyes: normal inspection, EOMI Neck: supple, Trachea midline Respiratory/Chest: Decreased breath sounds, CTA, No accessory muscle use Cardiovascular: S1, S2, No murmur Abdomen/GI:Soft, Non tender, Bowel sounds present Back: Tenderness thoracic spine. 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 Patient's care is coordinated with Gianna Mcgrath PA-C. I have reviewed the advanced practitioner's documentation, and I agree with plan of care. Please refer to the documentation above for details of patient's presentation and for discussion of other issues. I spent a total [id number] coordinating, documenting, and providing care for this patient excluding time spent in the performance of separately billed services. (7) Hypertension Hypertension type: primary hypertension Qualified Code(s): I10 - Essential (primary) hypertension
[2024-07-21] MEDS ORDERED: DICYCLOMINE HCL 10 MG CAP PO PRN (19:04)
[2024-07-21] MEDS ORDERED: ONDANSETRON INJ 2 MG/ML 2 ML VIAL IV PRN (19:04)
[2024-07-21] MEDS ORDERED: ALBUTEROL HFA 8 GM INHALER INH PRN (19:04)
[2024-07-21] MEDS ORDERED: ACETAMINOPHEN 325 MG TAB PO PRN (19:04)
[2024-07-21] MEDS ORDERED: PROCHLORPERAZINE MALEATE 5 MG TAB PO PRN (19:04)
[2024-07-21] MEDS: MIRTAZAPINE TAB 15 MG TAB PO SCH (19:50)
[2024-07-21] MEDS: LOSARTAN POTASSIUM 25 MG TAB PO SCH (19:50)
[2024-07-21] MEDS: PANTOprazole 40 MG TAB PO SCH (19:51)
[2024-07-21] MEDS: HYDROcodone/APAP 7.5/325mg/15mL ELIX 15 ML/CUP PO PRN (20:27)
[2024-07-21] MEDS: LORazepam 1 MG TAB PO SCH (21:52)
[2024-07-21] MEDS: HEPARIN SOD 5,000 UNIT/0.5 ML VIAL SQ SCH (21:53)
--- NOTE | 2024-07-21 23:41 | Communication Note ---
Date of Service: July 21, 2024 Patient informed RN of sudden onset trouble swallowing. Has not happened before as per patient. Denies headache symptoms/face/arm/leg weakness. Patient able to sip water using straw without cough symptoms. " Will I be okay going to sleep?" PPE Anxious Coherent No facial asymmetry Symmetric palatopharyngeal elevation AP Swallowing disturbance Anxiety Aspiration precautions ABRASIVE GRINDER eval in a.m. Anxiolytic as needed
[2024-07-22] MEDS: ACETAMINOPHEN 1,000 MG/100 ML VIAL IV STA (04:05)
--- OUTSIDE RECORDS SUMMARY | 2024-07-22 06:17 | External Medical Summary | Summary of Care ---
Author Name Unknown Organization [facility] Address [address] [place] [address] Phone [phone] Care Team Providers Care Shredding Floor Equipment Operator Name Role Phone David España MD Primary Care P [facility] Encounter Details Date Type Department Care Team (Late st Contact Info) Description 07/18/2024 11:45 AM EST Scheduled Telephone Care Coordination and Integration [address] [place] [address] Victoria Contreras, Community Health Looping Inspector [address], [place] [id number] Allergies Active Allergy Reactions Criticality Noted Date [...] 30 g 1 05/06/2023 Active Saline Nasal [place] 0.65 % Nasal Solution (Churchill) Administer 1 [place] into nostril as needed for Congestion. Active Azelastine HCl 0.1 % Nasal Solution (Astelin)Indications :Seasonal allergic rhinitis, unspecified trigger Administer 1 [place] into nostril in the morning and 1 [place] before bedtime. 90 mL 3 03/09/2024 Active Ventolin HFA 108 (90 Base) MCG/ACT Inhalation Aerosol SolutionIndications: COPD, group A, by GOLD 2017 classification ([facility]) Inhale 2 Puffs by mouth every 4 hours as needed for Shortness of Breath, Wheezing or Cough. 18 g 5 03/25/2024 Active Additional Information Patient not taking.Reported on 06/28/2024 HYDROcodone-Acetamin ophen 7.5-325 MG/15ML Oral Solution (Hycet)Indications:S quamous cell carcinoma of glottis ([facility]),Cancer related pain Take 15 mL by mouth [...] anxiety,Recurrent major depressive disorder, in full remission ([facility]) Take 1 Tablet by mouth at bedtime. [...] mRNA, LNP-s, No Pre serve, 2-Dose Series ([employer]) 01/28/2021,01/07/2021,12/13/2020 Pneumococcal Conjugate Vacc, 13 Valent (Prevnar) [...] No 03/11/2024 documented as of this encounter Progress Notes * Victoria Contreras, Community Health Looping Inspector - 07/18/2024 10:42 AM EST Telemedicine visit: No Community Health Looping Inspector (COLIN) documentation: COLIN Telephonic Contact: Received request from primary CM to conduct phone contact. CM requested the following phone surveys: COLIN General Phone Survey. Results of survey can be seen below. Patient Current Tier: 2 Connected with patient via phone. Verified patient identity by name and . -Are there other changes in your health that you would like to talk to your nurse about? Spoke withwife. Pt is currently in the hospital for anxiety and depression. She is awaiting to schedule with mental health therapy. He is to be discharged from the hospital today. -Would you like your nurse to contact you this week? no All abnormal responses were communicated to Primary CM. Reinforced to the patient that they should contact their primary CM if experiencing any of the following 3 Red Flags (as noted in Essette Goal): 1st Red Flag: SOB 2nd Red Flag: fever > 100.4 3rd Red Flag: Change in color/ampt of sputum production Victoria Contreras [facility] Health Looping Inspector Electronically signed by Victoria Contreras [facility] Health Looping Inspector at 07/18/2024 10:47 AM EST documented in this encounter Plan of Treatment Upcoming Encounters Date Type Department Care Team (Latest Contact Info) Description 07/20/2024 2:00 PM EST Office Visit Radiation Oncology, [facility] [address] [place] [address] Ron Evangelista MD [address] [place] [phone] 07/22/2024 9:00 AM EST Office Visit [facility] [address] [place] [phone] Hailee Rubalcava PA-C [address] [place] [phone] 08/10/2024 11:50 AM EST Office Visit [facility] [address] [place] [address] David España MD [address] [place] [address] 08/15/2024 8:30 AM EST Hospital Encounter ENDO [facility], Endoscopy Room [facility] [address] [place] [phone] Danette Clifton, DO [address] [place] [id number] 08/15/2024 8:30 AM EST - 08/15/2024 9:00 AM EST Surgery ENDO O[facility], Endoscopy Room [facility] [address] [place] [phone] Danette Clifton, [address] [place] [address] COLONOSCOPY FLEXIBLE PROXIMAL DIAGNOSTIC 08/23/2024 1:45 PM EST Office Visit Urology, [facility] [address] [place] [phone] Alejo Hodge MD [address] [place] [address] Scheduled Procedures Name Priority Associated Diagnoses Date/Ti me COLONOSCOPY FLEXIBLE PROXIMAL DIAGNOSTIC Recall Special screening for malignant neoplasms, colon 08/15/2024 8:30 AM EST Health Maintenance Due Date Last Done Comments Zoster Vaccines (1 of 2) 1995 Adult Wellness Visit 2011 Colonoscopy 03/05/2012 03/05/2011 COVID-19 Vaccine ( season) 2024 01/28/2021, 01/07/2021, 12/13/2020 Albumin/Creatinine Ratio 08/14/2024 08/14/2023 CKD PHOS USE SMARTSET 52170 08/14/2024 08/14/2023 GFR 09/10/2024 03/11/2024, 0504/2024, 08/14/2023, Additional history exists CKD HGB USE SMARTSET 76673 03/11/202503/11, 03/11/2024, 08/14/2023, Additional history exists O2 [...] Discussed due to patient's condition Care Teams Shredding Floor Equipment Operator Relationship Specialty Start Date End Date David España MD [address] [place] [phone] PCP - General Family Medicine 01/21/21 documented as of this encounter
--- OUTSIDE RECORDS SUMMARY | 2024-07-22 06:17 | External Medical Summary | Summary of Care ---
Author Name Unknown Organization [facility] Address [address] [place] [address] Phone [phone] Care Team Providers Care Retail Wireless Sales Representative Name Role Phone David España MD Primary Care P rovider Encounter Details Date Type Department Care Team (Late st Contact Info) Description 07/19/2024 Population Health External Data Unspecified Department Allergies Active Allergy Reactions Criticality Noted Date Comments Bee Venom Edema Other 08/01/2003 Local large swelling; no anaphylaxis history Hydromorphone Hcl Other (Please comment) 2011 Hyperactive Oxycodone Psych complications 06/02/2024 Delusions/hallucinati ons Penicillins Hives,Itching 06/08/2001 documented as of this encounter (statuses as of 07/19/2024) Medications Medication Sig Dispensed Refills Start Date End Date Status Acetaminophen 500 MG Oral Tablet (TYLENOL) Take 1 Tablet by mouth every 6 hours as needed. Active Hydrocortisone (Perianal) 2.5 % External CreamIndications:Hem orrhoids, external without complications Administer into the rectum 2 times a day. 30 g 1 05/06/2023 Active Saline Nasal [place] 0.65 % Nasal Solution ([place]) Administer 1 [place] into nostril as needed for Congestion. Active Azelastine HCl 0.1 % Nasal Solution (Astelin)Indications :Seasonal allergic rhinitis, unspecified trigger Administer 1 [place] into nostril in the morning and 1 [place] before bedtime. 90 mL 3 03/09/2024 Active Ventolin HFA 108 (90 Base) MCG/ACT Inhalation Aerosol SolutionIndications: COPD, group A, by GOLD 2017 classification (HCC) Inhale 2 Puffs by mouth every 4 hours as needed for Shortness of Breath, Wheezing or Cough. 18 g 5 03/25/2024 Active Additional Information Patient not taking.Reported on 06/28/2024 HYDROcodone-Acetamin ophen 7.5-325 MG/15ML Oral Solution (Hycet)Indications:S quamous cell carcinoma of glottis (HCC),Cancer related pain Take 15 mL by mouth [...] depressive disorder, in full remission ([facility]) Take 1 Tablet by mouth [...] as of this encounter (statuses as of 07/19/2024) Active Problems Problem Noted Date Diagnosed Date [...] 06/02/2012 H/O adenomatous polyp of colon 04/02/2011 documented as of this encounter (statuses as of 07/19/2024) Resolved Problems Problem Noted Date Diagnosed Date Resolved Date Aspirin contraindicated 04/26/201307/16 Depression with anxiety 03/19/201206/14 Loss of weight 08/15/2011 05/03/2013 Irritable bowel syndrome 03/12/2011 ABNORMAL LUNG SCAN 11/01/2010 3 Tobacco use disorder 04/03/2008 013 ADVANCE DIRECTIVE INFORMATION 06/09/2005 07/18/2024 Overview: No, Advance Directive brochure given to patient. documented as of this encounter (statuses as of 07/19/2024) Immunizations Name Administration Dates Next Due COVID-19 mRNA, LNP-s, No Pre serve, 2-Dose Series ([employer]) 01/28/2021,01/07/2021,12/13/2020 Pneumococcal Conjugate Vacc, 13 Valent (Prevnar) [...] 07/31/2023 Does the household have a re gular source of income? (Household - for ages [...] No 03/11/2024 documented as of this encounter Plan of Treatment Upcoming Encounters Date Type Department Care Team (Latest Contact Info) Description 07/20/2024 2:00 PM EST Office Visit Radiation On[facility] [address] [facility] [address] IovoliRon MD [address] [facility] [place] [phone] 07/22/2024 9:00 AM EST Office Visit [facility] [address] [place] [phone] Hailee Rubalcava PA-C [address] [place] [phone] 08/10/2024 11:50 AM EST Office Visit [facility] [address] [place] [phone] David España MD [address] [place] [address] 08/15/2024 8:30 AM EST Hospital Encounter ENDO OSS, Endoscopy Room [facility] [address] [place] [phone] Danette Clifton DO [address] [place] [address] 08/15/2024 8:30 AM EST - 08/15/2024 9:00 AM EST Surgery ENDO [facility], Endoscopy Room [facility] [address] [place] [phone] Danette Clifton DO [address] [place] [phone] COLONOSCOPY FLEXIBLE PROXIMAL DIAGNOSTIC 08/23/2024 1:45 PM EST Office Visit Urology, [facility] [address] [place] [phone] Alejo Hodge MD [address] [place] [address] Scheduled Procedures Name Priority Associated Diagnoses Date/Ti me COLONOSCOPY FLEXIBLE PROXIMAL DIAGNOSTIC Recall Special screening for malignant neoplasms, colon 08/15/2024 8:30 AM EST Health Maintenance Due Date Last Done Comments Zoster Vaccines (1 of 2) 1995 Adult Wellness Visit 2011 Colonoscopy 03/05/2012 03/05/2011 COVID-19 Vaccine ( season) 2024 01/28/2021, 01/07/2021, 12/13/2020 Albumin/Creatinine Ratio 08/14/2024 08/14/2023 CKD PHOS USE SMARTSET 60126 08/14/2024 08/14/2023 GFR 09/10/2024 03/11/2024, 01/13, 08/14/2023, Additional history exists CKD HGB USE SMARTSET 80553 03/11/202503/11, 03/11/2024, 08/14/2023, Additional history exists O2 [...] Discussed due to patient's condition Care Teams Retail Wireless Sales Representative Relationship Specialty Start Date End Date [facility] España [facility] [address] PCP - General Family Medicine 01/21/21 documented as of this encounter
[2024-07-22 06:34] LABS: BUN Creatinine Ratio 8.2 (10-20); Creatinine Clr Calc Pharmacy 58.7 ml/min; Potassium 3.9 mmol/L (3.5-5.1)
[2024-07-22 06:41] LABS: Hematocrit (blood only) 36.6 % (42.0-52.0); Hemoglobin 13.2 g/dl (14.0-18.0); Mean Corpuscular Hemoglobin 30.8 pg (25.0-34.0); Mean Corpuscular Hgb Conc 36.1 g/dL (32.0-36.0); Mean Corpuscular Volume 85.3 fL (80.0-100.0); Mean Platelet Volume 8.6 fL (9.4-12.4); Platelet Count 162 K/uL (130-400); RDW Coefficient of Variation 12.9 % (11.5-14.5); RDW Standard Deviation 39.4 fL (36.4-46.3); Red Blood Count 4.29 M/uL (4.70-6.10); White Blood Count 4.33 K/ul (4.8-10.8)
--- NOTE | 2024-07-22 08:38 | Hospitalist Progress Note ---
Date of Service July 22, 2024 Assessment & Plan (1) Atypical chest pain: (2) Acute hyponatremia: (3) Squamous cell carcinoma of glottis: (4) Anxiety about health: (5) Generalized anxiety disorder: (6) MDD (major depressive disorder), recurrent episode, moderate: (7) Hypertension: Plan Mr. Blount is a 78yo M with a PMH of atypical chest pain, JOSE, MDD, HTN, squamous cell carcinoma of glottis, COPD and other medical problems listed below who presents with atypical chest pain. #Atypical chest pain, neuropathic DDX cervical angina 2/2 DJD v chest wall syndrome from radiation Known DJD, cervical spine pain Recent multiple admissions for similar chest/back pain - trop negative, EKG without ischemic changes, CTA without sign of active dissection Recommended for antihypertensives last admission as well as cardiac stress test, patient declined Trop negative thus far, EKG without changes from previous, CXR with no acute cardiopulmonary changes CT c-spine ordered today: moderate to advance DJD Nitro without improvement in chest pain Pain management: will not be able to faciliate [facility], will need [facility] referral Start Medrol dose pack Start gabapentin TID #Hypertension Trial of losartan 25mg daily for BP control #Unintended weight loss 10 kg wt loss over last year per chart review in setting of cancer tx, now with lack of appetite 2/2 depression Consult tester waste disposal leakage and speech given weight loss, h/o cancer of glottis Resume regular diet, speech without any aspiration noted MOTORBOAT OPERATOR referral OP recommended #Hyponatremia improving from 129 to 135, Suspect SIADH given history Given 500ml NSS in ED Serum osm 271, awaiting urine studies 1800ml fluid restriction Repeat BMP in AM #Dyspepsia/GERD Continue Protonix, Pepcid #Generalized anxiety disorder #MDD In setting of recent completion of cancer treatment - anhedonia, decreased appetite, worsening chronic pain Seen by psych last admission - concern for pseudodementia given poor effort during MOCA continue Lexapro to 10mg daily, continue home ativan and mirtazapine Routine psych given worsening sx at home prompting to remove weapons, bring patient in. Denies SI now #SCC larynx involving left vocal fold, left laryngeal ventricle presented at the head/neck tumor board on 03/30/24 and recommendation at that time was for a PET and radiation therapy alone. PET performed on 04/05/24 which did not reveal any evidence of FDG avid malignancy. s/p SRBT, c/f chest wall syndrome potentially as symptoms started abruptly after radiation therapy #COPD Stable. Continue home albuterol inh DVT Ppx: SQ heparin Code status: FULL PCP: Mina Dispo: admitted med tele Admission and Anticipated Discharge Date Admission Date: July 21, 2024 Subjective patient evaluated at bedside fixated on something is "terribly wrong" No relief with any medications Physical Exam Constitutional: WD/WN, vitals as above Respiratory: normal respiratory effort, lungs clear to auscultation Cardiovascular: RRR, no murmur, no edema Results & Data Results & Data Vital Signs (Past 12 Hours) Vital Signs Temp Pulse Pulse Resp BP Pulse Ox O2 Del Method 07/22/24 08:07 36.4 C L 59 L 20 149/69 H 97 Room Air 07/22/24 07:26 57 L 07/22/24 03:58 36.5 C 59 L 20 142/59 H 97 Room Air 07/21/24 23:22 36.5 C 63 18 147/74 H 97 Room Air 07/21/24 22:05 68 Laboratory Results Short CBC 07/21/24 07/22/24 Range/Units 15:25 05:41 WBC 5.85 4.33 L (4.8-10.8) K/ul Hgb 13.9 L 13.2 L (14.0-18.0) g/dl Hct 37.8 L 36.6 L (42.0-52.0) % Plt Count 171 162 (130-400) K/uL BMP 07/21/24 07/22/24 15:25 05:41 Sodium 129 L 135 L Potassium 3.8 3.9 Chloride 96 L 101 Carbon Dioxide 25 29 BUN 8 8 Creatinine 0.88 0.97 Glucose 93 100 H Calcium 9.9 10.0 Liver Function 07/21/24 Range/Units 15:25 Total Bilirubin 1.0 (0.2-1.0) mg/dl AST 19 (13-39) U/L ALT 22 (7-52) U/L Alkaline Phosphatase 59 (34-104) U/L Albumin 4.1 (3.4-5.0) gm/dl Medications Administered Home Medications Medication Instructions Recorded Confirmed Last Taken albuterol sulfate 90 mcg/actuation 2 puff inhalation QID PRN 10/15/22 07/21/24 06/30/24 aerosol inhaler Shortness Of Breath fluticasone propionate 50 2 spray intranasal QAM 10/15/22 07/21/24 07/15/24 mcg/actuation nasal spray,suspension lorazepam 1 mg tablet 1 mg PO TID 10/15/22 07/21/24 07/15/24 dicyclomine 10 mg capsule 10 mg PO TID PRN abdominal pain 06/30/24 07/21/24 07/15/24 #20 caps azelastine 137 mcg (0.1 %) nasal 1 spray intranasal DAILY 07/09/24 07/21/24 07/15/24 spray hydrocodone 7.5 mg-acetaminophen 15 ml PO Q4H PRN Pain 07/16/24 07/21/24 Unknown 325 mg/15 mL oral solution pantoprazole 40 mg tablet,delayed 40 mg PO HS 07/16/24 07/21/24 07/15/24 release escitalopram oxalate 10 mg tablet 5 mg (1/2 x 10 mg) PO QPM 30 days 07/18/24 07/21/24 Unknown #15 tabs mirtazapine 30 mg tablet 30 mg PO HS 30 days #30 tabs 07/18/24 07/21/24 Unknown sennosides 8.6 mg-docusate sodium 1 tab PO QAM 30 days #30 tabs 07/18/24 07/21/24 Unknown 50 mg tablet (Senokot-S) tamsulosin 0.4 mg capsule 0.4 mg PO DAILY 30 days #30 caps 07/18/24 07/21/24 Unknown famotidine 20 mg tablet 20 mg PO HS PRN Heartburn 07/21/24 07/21/24 Unknown prochlorperazine maleate 5 mg 5 mg PO Q6H PRN Nausea And Vomiting 07/21/24 07/21/24 Unknown tablet Active Medications Generic Name Dose Route Start Last Admin Trade Name Freq PRN Reason Stop Dose Admin Hydrocodone Bitart/Acetaminophen 15 ml 07/21/24 19:14 07/21/24 20:27 Hydrocodone/Apap 7.5/325mg/15ml Elix 15 Ml/Cup PO 08/04/24 19:13 15 ml Q4H PRN Administration Severe Pain Escitalopram Oxalate 10 mg 07/22/24 09:00 11/08/24 09:01 Escitalopram Oxalate 10 Mg Tab PO 08/21/24 08:59 10 mg QAM JANINE Administration Fluticasone Propionate 2 sprays 07/22/24 09:00 07/22/24 09:00 Fluticasone Propionate Na Spr 16 Gm Btl NA 08/21/24 08:59 2 sprays QAM JANINE Administration Gabapentin 300 mg 07/22/24 14:00 07/22/24 14:31 Gabapentin 300 Mg Cap PO 08/21/24 13:59 300 mg TID JANINE Administration Heparin Sodium (Porcine) 5,000 units 07/21/24 22:00 07/22/24 14:18 Heparin Sod 5,000 Unit/0.5 Ml Vial SQ 08/20/24 21:59 Not Given Q8 JANINE Lorazepam 1 mg 07/21/24 21:00 07/22/24 14:19 Lorazepam 1 Mg Tab PO 08/20/24 20:59 1 mg TID JANINE Administration Losartan Potassium 25 mg 07/21/24 19:04 07/22/24 09:00 Losartan Potassium 25 Mg Tab PO 08/20/24 19:03 25 mg QAM JANINE Administration Methylprednisolone 8 mg 07/22/24 13:30 07/22/24 14:19 Methylprednisolone 4 Mg Tab PO 07/22/24 21:01 8 mg 1330,1700,2100 JANINE Administration Mirtazapine 30 mg 07/21/24 21:00 07/21/24 19:50 Mirtazapine Tab 15 Mg Tab PO 08/20/24 20:59 30 mg HS AJNINE Administration Nitroglycerin 0.4 mg 07/21/24 19:04 07/22/24 13:08 Nitroglycerin Sl 0.4 Mg/Tab Tab SL 08/20/24 19:03 0.4 mg Q5M PRN Administration Chest Pain Pantoprazole Sodium 40 mg 07/21/24 21:00 07/21/24 19:51 Pantoprazole 40 Mg Tab PO 08/20/24 20:59 40 mg HS JANINE Administration Senna/Docusate Sodium 1 tab 07/22/24 09:00 07/22/24 08:59 Docusate Sodium/Senna 50/8.6mg Tab PO 08/21/24 08:59 1 tab QAM JANINE Administration Tamsulosin HCl 0.4 mg 07/22/24 09:00 07/22/24 09:03 Tamsulosin Hcl 0.4 Mg Cap PO 08/21/24 08:59 Not Given DAILY JANINE (7) Hypertension Hypertension type: primary hypertension Qualified Code(s): I10 - Essential (primary) hypertension
[2024-07-22] MEDS: DOCUSATE SODIUM/SENNA 50/8.6MG TAB PO SCH (08:59)
[2024-07-22] MEDS: FLUTICASONE PROPIONATE NA SPR 16 GM BTL SCH (09:00)
[2024-07-22] MEDS: ESCITALOPRAM OXALATE 10 MG TAB PO SCH (09:01)
[2024-07-22] MEDS: TAMSULOSIN HCL 0.4 MG CAP PO SCH (09:03)
--- NOTE | 2024-07-22 11:47 | CT Scan Report ---
CT cervical spine wo con CT DOSE: 531.05 mGy.cm CLINICAL HISTORY: 78 years-old Male with concern for severe DJD. Chronic neck pain COMPARISON: CTA of the neck 01/31/2024 TECHNIQUE: Multiple axial CT images of the cervical spine were obtained without contrast. A dose low ering technique was utilized adhering to the principles of ALARA. FINDINGS: Straightening of the normal cervical lordosis. There is severe intervertebral disc space na rrowing with moderate to advanced spondylotic spurring at C3-C7. Moderate disc space narrowing at C7- T1 T1-T2. Multilevel facet arthrosis is predominantly moderate however severe C7-T1. Mild dextroscoli osis. No acute fracture, subluxation or suspicious bone lesion. The central canal and neural foramen are suboptimally evaluated by CT technique. There is no high-grade central canal stenosis identified. There is suggestion of mild central canal stenosis at C4-C5 and C5-C6. Moderate to severe multilevel foraminal narrowing. The cervical soft tissues appear unremarkable. The imaged intracranial structures demonstrate no acut e abnormality. Pulmonary emphysema. The visualized lung apices appear clear. IMPRESSION: 1. No acute cervical spine fracture or subluxation. 2. Moderate to advanced degenerative changes of the cervical spine as described above. 3. Suboptimal evaluation of the central canal and neural foramen by CT technique. There is no high-gr gaby central canal stenosis identified, however there is multilevel neural foraminal narrowing which a ppears to be moderate to severe. 4. Pulmonary emphysema. ACT 112: Negative or not required by law. The above report was generated using voice recognition software. It may contain grammatical, syntax o r spelling errors. Electronically signed by: Sp Moeller M.D. 07/22/2024 11:45 AM
--- NOTE | 2024-07-22 11:55 | XRay Report ---
EXAM: XR lumbar spine 2-3V CLINICAL HISTORY: BACK PAIN WTW TECHNIQUE: X-ray images of the lumbar spine were obtained in anteroposterior (AP), LS spot and lateral projections. COMPARISON: No prior studies available for comparison. FINDINGS: Alignment: Lumbar spine alignment is normal. Straightening of the lumbar lordosis is seen. Facet degenerative changes seen at the lower lumbar spine levels. Vertebral Bodies: Vertebral bodies are of normal height and morphology. Multilevel anterior and lateral marginal osteophytes seen throughout. No evidence of fractures, compression deformities, or significant osseous lesions. Intervertebral Disc Spaces: Loss of disc height seen at L5-S1. Soft Tissues: Paraspinal soft tissues are of normal thickness. No evidence of paraspinal soft tissue swelling or mass effect. Additional Findings: Atherosclerotic calcification of the aorta seen. IMPRESSION: 1. Straightening of the lumbar lordosis is seen. 2. Moderate lumbar spondylotic changes. 3. L5-S1 discopathy. 4. MRI lumbar spine is advised. Disclaimer: A subtle bone abnormality or fracture may not be readily apparent on X-rays, thus clinical correlation and further imaging including follow-up CT, MRI, or follow-up X-rays are advised as needed. Electronically signed by Constantine Weeks 07-22-2024 11:53 AM
--- NOTE | 2024-07-22 12:41 | Fluoroscopy Report ---
MODIFIED BARIUM SWALLOW CLINICAL HISTORY: dysphagia [facility] COMPARISON STUDY: CTA of the neck January 31, 2024. FLUOROSCOPY TIME: 46 seconds. Ka,r: 2.25 mGy. TECHNIQUE: A modified barium swallow was performed in conjunction with Speech Pathology. The patient ingested varying consistencies of barium containing material. Video fluoroscopy was performed. FINDINGS: No tracheal aspiration was identified with thin liquids by spoon, cup or straw. There was n o aspiration with nectar thick liquids or pudding consistencies. Epiglottic inversion was normal. Lar yngeal elevation was normal. IMPRESSION: 1. Intact swallowing mechanism. No tracheal aspiration. 2. Full recommendations by Speech pathology to follow. ACT 112: Negative or not required by law. Electronically signed by: Juvenal Sadler M.D. 07/22/2024 12:40 PM
[2024-07-22] MEDS: NITROGLYCERIN SL 0.4 MG/TAB TAB SL PRN (13:08)
[2024-07-22] MEDS ORDERED: methylPREDNISolone 4 MG TAB, 6 DAY TAPER PO SCH (13:15)
--- NOTE | 2024-07-22 13:23 | Electrocardiogram Report ---
Test Reason : Blood Pressure : */* mmHG Vent. Rate : 66 BPM Atrial Rate : 66 BPM P-R Int : 142 ms QRS Dur : 86 ms QT Int : 414 ms P-R-T Axes : 69 91 87 degrees QTcB Int : 434 ms Normal sinus rhythm Rightward axis Borderline ECG When compared with ECG of 16-Jul-2024 23:01, No significant change was found Confirmed by Cal Dumas ([id number]) on 07/22/2024 1:23:10 PM Referred By: REFERRED SELF Confirmed By: Cal Dumas
--- NOTE | 2024-07-22 13:49 | Electrocardiogram Report ---
Test Reason : Blood Pressure : */* mmHG Vent. Rate : 57 BPM Atrial Rate : 57 BPM P-R Int : 132 ms QRS Dur : 90 ms QT Int : 456 ms P-R-T Axes : 28 79 74 degrees QTcB Int : 443 ms Poor data quality, interpretation may be adversely affected Sinus bradycardia ST elevation, consider early repolarization, pericarditis, or injury Abnormal ECG When compared with ECG of 21-Jul-2024 15:15, (unconfirmed) No significant change was found Confirmed by Cal Dumas ([id number]) on 07/22/2024 1:49:42 PM Referred By: REFERRED SELF Confirmed By: Cal Dumas
[2024-07-22] MEDS ORDERED: DULoxetine HCL 30 MG CAP PO SCH (14:15)
[2024-07-22] MEDS: methylPREDNISolone 4 MG TAB PO SCH (14:19)
[2024-07-22] MEDS: GABAPENTIN 300 MG CAP PO SCH (14:31)
--- NOTE | 2024-07-22 14:42 | XRay Report ---
XR thoracic spine 3V routine CLINICAL HISTORY: Back pain. COMPARISON STUDY: Chest CT July 16, 2024. FINDINGS: Alignment of the thoracic spine is anatomic. Vertebral body heights are maintained. No thor acic spine fractures are identified. There is mild multilevel endplate osteophytosis within the thora cic spine. IMPRESSION: 1. No thoracic spine fractures. 2. 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 ACT 112: Negative or not required by law. Electronically signed by: Juvenal Sadler M.D. 07/22/2024 2:41 PM
[2024-07-22] MEDS ORDERED: POLYETHYLENE (MIRALAX) 17 GM PACK PO PRN (20:08)
[2024-07-22] MEDS: MELATONIN 3 MG TAB PO PRN (20:26)
[2024-07-22] MEDS: SIMETHICONE 80 MG CHEW PO PRN (20:26)
[2024-07-22] MEDS: FAMOTIDINE 20 MG TAB PO PRN (20:26)
[2024-07-22] MEDS: POLYETHYLENE (MIRALAX) 17 GM PACK PO STA (20:26)
[2024-07-22 21:18] VITALS: O2SAT 94
[2024-07-23] MEDS: methylPREDNISolone 4 MG TAB PO SCH (06:06)
[2024-07-23 08:03] VITALS: BP 132/64; PULSE 77; RESP 14; TEMP 98.4
[2024-07-23] MEDS: SODIUM CHLORIDE 0.9% 250 ML IV ONE (09:36)
[2024-07-23] MEDS: bisacodyL 5 MG TABEC PO ONE (09:39)
[2024-07-23] MEDS: DICLOFENAC SOD 1% GEL 100 GM TUBE EXT SCH (10:17)
--- NOTE | 2024-07-23 12:09 | Discharge Summary ---
Discharge Summary Date of Service July 23, 2024 Principal Dx & Hospital Course #1 = Principal Diagnosis (1) Atypical chest pain: (2) Acute hyponatremia: (3) Squamous cell carcinoma of glottis: (4) Anxiety about health: (5) Generalized anxiety disorder: (6) MDD (major depressive disorder), recurrent episode, moderate: (7) Hypertension: Plan Mr. Blount is a 78yo M with a PMH of atypical chest pain, JOSE, MDD, HTN, squam ous cell carcinoma of glottis, COPD and other medical problems listed below who presents with atypical chest pain. Pain is reproducible to touch. Ischemic work up negative multiple times. Chest pain is not of cardiac origin. Patient with degenerative disease in neck and possible component of side effect from radiation given onset. Patient also with notable anxiety and seeking multiple reasons to stay in hospital. It was made clear that he is able to swallow and should prioritize water over coffee, that he should follow up with his PCP scheduled 07/26 and discuss pain management referral. Patient often refusing various treatments. Patient declined medrol dose pack as he "felt different" but is agreeable to gabapentin and voltaren. Discussed plan with and reassured that as of now there is no sign of active cardiac disease and reinforced plan for PCP and pain referral. Also, discussed that the success of his pain regimen and his psych medications are contingent on him continuing the medications consistently. #Atypical chest pain, neuropathic DDX cervical angina 2/2 DJD v chest wall syndrome from radiation Known DJD, cervical spine pain Recent multiple admissions for similar chest/back pain - trop negative, EKG without ischemic changes, CTA without sign of active dissection Recommended for antihypertensives last admission as well as cardiac stress test, patient declined Trop negative thus far, EKG without changes from previous, CXR with no acute cardiopulmonary changes CT c-spine ordered today: moderate to advance DJD Nitro without improvement in chest pain Pain management: will not be able to faciliate [facility], will need [facility] referral discontinued medrol dose pack as patient declined Continue gabapentin TID Volataren q8 hours #Hypertension discontinued losartan given concern for intermittent compliance and likely driven by anxiety #Unintended weight loss 10 kg wt loss over last year per chart review in setting of cancer tx, now with lack of appetite 2/2 depression Consult supervisor insecticide and speech given weight loss, h/o cancer of glottis Resume regular diet, speech without any aspiration noted STRAND GALVANIZER referral OP recommended #Hyponatremia improving from 129 to 135, Suspect SIADH given history Given 500ml NSS in ED Serum osm 271, awaiting urine studies 1800ml fluid restriction resolved #Dyspepsia/GERD Continue Protonix, Pepcid #Generalized anxiety disorder #MDD In setting of recent completion of cancer treatment - anhedonia, decreased appetite, worsening chronic pain Seen by psych last admission - concern for pseudodementia given poor effort during MOCA continue Lexapro to 10mg daily, continue home ativan and mirtazapine Routine psych given worsening sx at home prompting to remove weapons, bring patient in. Denies SI now #SCC larynx involving left vocal fold, left laryngeal ventricle presented at the head/neck tumor board on 03/30/24 and recommendation at that time was for a PET and radiation therapy alone. PET performed on 04/05/24 which did not reveal any evidence of FDG avid malignancy. s/p SRBT, c/f chest wall syndrome potentially as symptoms started abruptly after radiation therapy #COPD Stable. Continue home albuterol inh Notes For Next Care Provider -Consider OP stress test -Referral to pain management -Referral to OP STRAND GALVANIZER for exercises and positive reinforcement given psychogenic component -Antihypertensive not prescribed given concern anxiety is driving pressures and if consistent with pain/anxiety management, will likely not need, will leave to discretion of PCP Medication Changes From Visit Start Gabapentin 300mg TID Start voltaren topical q8 hours Admission HPI Per Admitting Provider This is a 78yo M with a PMH of atypical chest pain, JOSE, MDD, HTN, squamous cell carcinoma of glottis, COPD and other medical problems listed below who presents with chest pain. Describes pain as constant and radiating to his mid-back. Pain woke him up this morning and has not changed in character or severity. No SOB, nausea or vomiting. Has been less mobile than previously. Completed XRT for SCC of glottis a few weeks ago. Was recently admitted from 07/16-07/18 with similar chest pain and has undergone workup. Cardiology was consulted and recommended starting BP medications and considering cardiac stress testing. Patient declined all medications and further testing at that time and was discharged home on 09/17. States his BP is lower at home when he checks it. Was also seen by psychiatry who recommended starting Lexapro as well as ativan. Continues to feel anxious but doesn't have an understanding of why. is concerned enough that she removed weapons in the home and brought him in for further evaluation. No fever, chills, headache, lightheadedness, SOB, N/V, abd pain, dysuria, diarrhea or constipation. Admission Exam Per Admitting Provider Physical Exam: Vitals signs as noted above General Appearance:Moderately built and nourished, no apparent distress Head: normocephalic, Atraumatic Eyes: normal inspection, EOMI Neck: supple, Trachea midline Respiratory/Chest: Decreased breath sounds, CTA, No accessory muscle use Cardiovascular: S1, S2, No murmur Abdomen/GI:Soft, Non tender, Bowel sounds present Back: Tenderness thoracic spine. Extremities/Musculoskeletal:normal inspection, no edema Neurologic/Psych:AAOX3, grossly no focal neurological deficits Skin: normal color, warm Discharge Exam Constitutional very anxious gentleman Respiratory normal respiratory effort, lungs clear to auscultation Cardiovascular RRR, no murmur, no edema Gastrointestinal (Abdomen) normal bowel sounds, soft, nontender, no hepatosplenomegaly Updated Medication List Medication Instructions Recorded Confirmed Type albuterol sulfate 90 mcg/actuation 2 puff inhalation QID PRN 10/15/22 07/21/24 History aerosol inhaler Shortness Of Breath fluticasone propionate 50 2 spray intranasal QAM 10/15/22 07/21/24 History mcg/actuation nasal spray,suspension lorazepam 1 mg tablet 1 mg PO TID 10/15/22 07/21/24 History dicyclomine 10 mg capsule 10 mg PO TID PRN abdominal pain 06/30/24 07/21/24 Rx #20 caps azelastine 137 mcg (0.1 %) nasal 1 spray intranasal DAILY 07/09/24 07/21/24 History spray hydrocodone 7.5 mg-acetaminophen 15 ml PO Q4H PRN Pain 07/16/24 07/21/24 History 325 mg/15 mL oral solution pantoprazole 40 mg tablet,delayed 40 mg PO HS 07/16/24 07/21/24 History release mirtazapine 30 mg tablet 30 mg PO HS 30 days #30 tabs 07/18/24 07/21/24 Rx sennosides 8.6 mg-docusate sodium 1 tab PO QAM 30 days #30 tabs 07/18/24 07/21/24 Rx 50 mg tablet (Senokot-S) tamsulosin 0.4 mg capsule 0.4 mg PO DAILY 30 days #30 caps 07/18/24 07/21/24 Rx famotidine 20 mg tablet 20 mg PO HS PRN Heartburn 07/21/24 07/21/24 History prochlorperazine maleate 5 mg 5 mg PO Q6H PRN Nausea And Vomiting 07/21/24 07/21/24 History tablet diclofenac sodium 1 % topical gel 2 g EXT Q8H 30 days #100 grams 07/23/24 Rx (Voltaren Arthritis Pain) escitalopram oxalate 10 mg tablet 10 mg PO QPM 30 days #15 tabs 07/23/24 Rx gabapentin 300 mg capsule 300 mg PO TID 30 days #90 caps 07/23/24 Rx Hospital Stay Data Consultations 07/21/24 17:08 ED Decision to Admit Stat Diagnostic Imagining Performed 07/22/24 08:41 CT cervical spine wo con Routine 07/22/24 10:00 FL video swallow Routine Pending Results Patient Have Any Pending Studies at Discharge: No Discharge Instructions Given to Patient (Per Discharging Provider) You were admitted for chest pain. This is not related to your heart. Please start Gabapentin 300mg three times a day Please use voltaren gel every 8 hours to the area that is bothersome Please increase your escitalopram to 10mg at bedtime Please use heating pads as needed for comfort Please follow up with your PCP this 07/26 for referral to pain management Total Time Total Time Spent Total Time Spent (In Minutes): 45
[2024-07-23] MEDS ORDERED: methylPREDNISolone 4 MG TAB PO SCH (21:00)
[2024-07-24] MEDS ORDERED: methylPREDNISolone 4 MG TAB PO SCH (07:00)
--- NOTE | 2024-07-24 20:19 | Electrocardiogram Report ---
Test Reason : Blood Pressure : */* mmHG Vent. Rate : 66 BPM Atrial Rate : 66 BPM P-R Int : 166 ms QRS Dur : 84 ms QT Int : 428 ms P-R-T Axes : 90 85 77 degrees QTcB Int : 448 ms Normal sinus rhythm Possible Left atrial enlargement Borderline ECG When compared with ECG of 22-Jul-2024 06:27, No significant change was found Confirmed by Rodney Cunningham ([id number]) on 07/24/2024 8:18:56 PM Referred By: REFERRED SELF Confirmed By: Rodney Cunningham
[2024-07-25] MEDS ORDERED: methylPREDNISolone 4 MG TAB PO SCH (07:00)
[2024-07-26] MEDS ORDERED: methylPREDNISolone 4 MG TAB PO SCH (07:00)
[2024-07-27] MEDS ORDERED: methylPREDNISolone 4 MG TAB PO SCH (07:00)
== END 2024-07-23 12:02 | disposition home or self-care (01) | DRG 885 ==
LOC: ED 15:05 → SUATTDRO 17:22 → 2W 17:22